=== PATIENT | female | born 1990 | race Caucasian/White ===

== ENCOUNTER → 2023-12-06 13:32 | Outpatient (BNVA) | payer SELFPAY | PROVIDERS: Visit Provider Registered Nurse Neonatal Intensive Care | DX: J02.9 Acute pharyngitis, unspecified (principal) | CPT/HCPCS: 87880 ==

== ENCOUNTER 2024-01-21 15:45 | Emergency (ER) | payer MEDICAID, SELFPAY ==
[2024-01-21 15:48] VITALS: BP 112/76; PULSE 93; RESP 16; TEMP 36.8; O2SAT 100; BMI 22.1
--- NOTE | 2024-01-21 15:54 | W.ED.ANXIETY ---
HPI - Anxiety General: Chief Complaint: Anxiety Stated Complaint: anxiety, sob Time Seen by Provider: 01/21/24 15:53 Source: patient Mode of arrival: ambulatory Limitations: no limitations History of Present Illness: Patient is a 33-year-old female presents to ED today for evaluation of anxiety and a panic attack earlier today. Patient states she does have a longstanding history of anxiety attacks. She states she has chronic depression and anxiety although has not been on medications for these in over 11 years. Patient states she is going through a large amount of stress with the divorce and child custody magana. She is not suicidal or homicidal. MD complaint: anxiety Onset (ago): week(s) Severity: moderate Quality: intermittent History of similar episodes: Yes Provoking factors: emotional stress Relieving factors: nothing Associated symptoms: Reports no associated symptoms Review of Systems Psych: Reports: anxiety, depression and panic attacks; Denies: hopelessness, paranoia, visual hallucinations, auditory hallucinations, suicidal ideation or homicidal ideation [facility] ED Female Reproductive History: Date of last menstrual period: 01/07/24 Physical Exam Const: COMMON NORMALS: no acute distress, average body habitus, patient oriented x3, no limitations, alert and well nourished Resp: COMMON NORMALS: normal respiratory effort and clear to auscultation bilaterally AUSCULTATION: clear to auscultation bilaterally Cardio: COMMON NORMALS: regular rate and regular rhythm RATE: regular rate RHYTHM: regular rhythm Neuro: MANOJ COMA SCALE: document GCS findings Manoj coma scale eye opening: Spontaneous Manoj coma scale verbal response: Orientated Manoj coma scale motor response: Obey commands Manoj coma scale total score: 15 COMMON NORMALS: patient oriented x3, moves all extremities, no focal motor deficits and no sensory deficits noted SENSORIUM/ORIENTATION: Yes alert Psych: COMMON NORMALS: Normal thought process present and speech normal APPEARANCE: Yes grossly normal ATTITUDE: Yes calm ACTIVITY/MOTOR BEHAVIOR: Yes appropriate eye contact SPEECH: Yes normal speech MOOD & AFFECT: Yes euthymic mood THOUGHT PROCESS: Normal thought process present THOUGHT CONTENT: Yes Normal thought content present ATTENTION/CONCENTRATION: Yes attention grossly intact and Yes concentration grossly intact MEMORY/COGNITION: Yes memory grossly intact and Yes cognition grossly intact INSIGHT: Good insight present (Psych) JUDGEMENT: Good judgement present (Psych) Course Vital Signs: Vital signs: Vital Signs Temperature 98.2 F 04/02/24 15:48 Pulse Rate 93 01/21/24 15:48 Respiratory Rate 16 01/21/24 15:48 Blood Pressure 112/76 01/21/24 15:48 Pulse Oximetry 100 01/21/24 15:48 Oxygen Delivery Me thod Room Air 01/21/24 15:48 MDM - Anxiety Medical Decision Making Patient here for evaluation/treatment of anxiety. She is not suicidal or homicidal. Will start her on Vistaril. She is requesting primary care follow-up so case management referral will be placed for this. Discussed how other treatment options including SSRIs might be better indicated for generalized anxiety disorder and she can discuss this during her primary care follow-up. Return precautions given. Differential Diagnosis Likely panic disorder and acute anxiety No radiology studies performed this visit Discharge Plan Discharge Patient Disposition: Home Clinical Impression: Acute anxiety Condition: Stable Prescriptions: New Vistaril 25 mg capsule 50 mg PO TID PRN (Reason: anxiety) Qty: 20 0RF No Action ibuprofen 200 mg Tablet 800 mg PO Q6H PRN (Reason: pain/fever) Probiotic 10 billion cell Capsule 10,000 mmu cells PO DAILY Discharge Orders: Discharge ED (Routine); Ordered 01/21/24 Ordered By: Maggie Davis Patient Instructions: Anxiety (ED) Activity Restrictions/Additional Instructions: As we discussed case management should contact you shortly to help set you up with your follow-up primary care appointment. Coding Level of Care Code ED Newspaper Or Periodical Editor for Sanjeev Hathaway
--- NOTE | 2024-01-22 07:46 | DCPLANNER ---
Message sent to [facility] for PCP
== END 2024-01-21 16:12 | disposition home or self-care (01) ==
PROVIDERS: Emergency Provider Physician Assistant
DX: F41.9 Anxiety disorder, unspecified (principal)
CPT/HCPCS: 99283

== ENCOUNTER → 2024-05-22 09:03 | Outpatient (BNVA) | payer BC, MEDICAID, SELFPAY | PROVIDERS: PCP Nurse Practitioner Family; Visit Provider Nurse Practitioner Family | DX: R53.83 Other fatigue (principal); R53.81 Other malaise | CPT/HCPCS: 80053; 80061; 84443; 85025 ==

== ENCOUNTER 2024-06-27 10:29 | Emergency (ER) | payer BC, MEDICAID, SELFPAY ==
--- NOTE | 2024-06-27 10:33 | XRR_ITS ---
PROCEDURE INFORMATION: Exam: XR Right Ankle Exam date and time: 06/27/2024 10:46 AM Age: 33 years old Clinical indication: Prior surgery; Surgery date: 6+ months; Surgery type: Right ankle plate/screws; Patient HX: PT presents with right ankle pain. Patient states that screws and plates in ankle roughly one year ago. Patient states that over the past several weeks patient has been having ankle pain and has gotten worse over the last several day. Patient states that hurts to put pressure on it. Patent airway, unlabored respirations, and appropriate color. TECHNIQUE: Imaging protocol: Radiologic exam of the right ankle. Views: 3 or more views. COMPARISON: No relevant prior studies available. FINDINGS: Bones/joints: Metallic plate and screws are seen in the distal aspect of the fibula as well as a solitary metallic screw traversing the medial malleolus. The bones show anatomic alignment. Soft tissues: Normal. XR/XR ankle RT min 3V* [id number] IMPRESSION: 1. Bimalleolar fracture status post ORIF. 2. The negative for acute bony abnormalities.
[2024-06-27 10:44] VITALS: BP 125/92; PULSE 85; RESP 18; TEMP 36.8; O2SAT 97; BMI 23.2
--- NOTE | 2024-06-27 10:58 | ED_ITS ---
HPI - Extremity Problem General: Chief complaint: Extremity Problem,Nontraumatic Stated complaint: Right Ankle Pain Time Seen by Provider: 06/27/24 10:48 History of Present Illness: 33-year-old female who presents emergenc y room with right ankle pain. She had a trauma and had to have surgery with a specialist in [place]. She has a lot of hardware she says. She has no new injury. She started developing pain on the lateral side of her ankle and has some bruising down her foot. She is worried about the hardware. Neurovascularly intact. Related Data Home Medications Medication Instructions Recorded Confirmed Lactobacillus acidophilus 10 10,000 mmu cells PO DAILY 01/21/24 05/21/24 billion cell capsule (Probiotic) Previous Rx's Medication Instructions Recorded hydroxyzine pamoate 25 mg capsule 50 mg (2 x 25 mg) PO TID PRN 05/21/24 (Vistaril) anxiety #20 caps dexamethasone 6 mg tablet 6 mg PO DAILY 5 days #5 tabs 06/27/24 diclofenac sodium 50 mg 50 mg PO BID PRN pain #14 tabs 06/27/24 tablet,delayed release tramadol 50 mg tablet 50 mg PO Q8H PRN pain #20 tabs 06/27/24 Allergies Allergy/AdvReac Type Severity Reaction Status Date / Time No Known Allergies Allergy Unverified 05/21/24 13:27 Review of Systems Narrative: Constitutional symptoms: Negative except as documented in HPI. Skin symptoms: Negative except as documented in HPI. Eye symptoms: Negative except as documented in HPI. ENMT symptoms: Negative except as documented in HPI. Respiratory symptoms: Negative except as documented in HPI. Cardiovascular symptoms: Negative except as documented in HPI. Gastrointestinal symptoms: Negative except as documented in HPI. Genitourinary symptoms: Negative except as documented in HPI. Musculoskeletal symptoms: Negative except as documented in HPI. Neurologic symptoms: Negative except as documented in HPI. Psychiatric symptoms: Negative except as documented in HPI. Endocrine symptoms: Negative except as documented in HPI. PFSH ED PFSH: Medical History Major depression Generalized anxiety disorder with panic attacks Family History Sister Cancer cervical Lupus (systemic lupus erythematosus) Thyroid disease Mother Thyroid disease Social History Smoking and tobacco/nicotine status: current every day tobacco/nicotine user (vape pen) e-cigarettes E-Cigarette Details: vaporizer device Second hand smoke exposure: No Alcohol intake: current Alcohol intake frequency: holidays/special occasions only Alcohol type: beer Substance/Drug Use: never Lives independently: Yes Marital status: Current occupational status: employed Do you think of yourself as: Straight/Heterosexual Current gender identity: Female Special rosalino needs: No Agree to transfusion: Yes Physical Exam Narrative: EXAM NARRATIVE: General: Alert, no acute distress. Skin: warm and dry Head: Normocephalic Neck: Trachea midline Eye: Extraocular movements are intact. Ears, nose, mouth and throat: Oral mucosa moist Respiratory: Respirations are non-labored Musculoskeletal: Normal ROM, neurovascularly intact, there are surgical scars, no redness, no warmth, there is some mild bruising distally on the foot. Neurological: Alert and oriented, No focal neurological deficit observed. Psychiatric: Cooperative, appropriate mood & affect. Course Vital Signs: Vital signs: Vital Signs Temperature 98.2 F 06/27/24 10:44 Pulse Rate 85 06/27/24 10:44 Respiratory Rate 18 06/27/24 10:44 Blood Pressure 125/92 06/27/24 10:44 Pulse Oximetry 97 06/27/24 10:44 Oxygen Delivery Me thod Room Air 06/27/24 10:44 MDM - Extremity (Nontraumatic) Medical Decision Making X-ray of the right ankle: No acute bony fractures. There is an old fracture that has hardware that appears intact. No acute abnormalities. This was reviewed and interpreted by myself the emergency room physician. I also reviewed the radiology report. Assessment and plan: Ankle pain Old ankle fracture status post ORIF ? IM Toradol and Decadron in the emergency room - Discharged home - Discussed plan with patient. Answered any questions. - Evaluation and treatment of this problem were appropriate in the emergency setting. Lab Data Radiology Impressions Ankle X-Ray 06/27/24 10:33 IMPRESSION: 1. Bimalleolar fracture status post ORIF. 2. The negative for acute bony abnormalities. All radiology interpretation(s) finalized by discharge Discharge Plan Discharge Patient Disposition: Home Clinical Impression: Ankle pain Qualifiers: Chronicity: unspecified Laterality: right Qualified Code(s): M25.571 - Pain in right ankle and joints of right foot Condition: Stable Prescriptions: New dexamethasone 6 mg tablet 6 mg PO DAILY 5 Days Qty: 5 0RF tramadol 50 mg tablet 50 mg PO Q8H PRN (Reason: pain) Qty: 20 0RF diclofenac sodium 50 mg tablet,delayed release (DR/EC) 50 mg PO BID PRN (Reason: pain) Qty: 14 0RF No Action Vistaril 25 mg capsule 50 mg PO TID PRN (Reason: anxiety) Qty: 20 0RF Probiotic 10 billion cell Capsule 10,000 mmu cells PO DAILY Discharge Orders: Discharge ED (Routine); Ordered 06/27/24 Ordered By: Soledad Razo Referrals: True Vang NP [Primary Care Provider] - 4-7 days Discharge Diet: Usual diet Discharge Activity: Increase activity as tolerated Patient Instructions: Pain Management Activity Restrictions/Additional Instructions: Please call for an appointment with your orthopedic surgeon as soon as possible. Thank you for choosing [facility] for your healthcare needs today. Please realize this is an emergency room and that we are providing you with a medical screening exam and this may not be complete and all inclusive of all the testing and or work up that you may need to determine your ailment or severity of your illness. You have been screened and evaluated and felt safe for discharge. Health conditions do change or evolve sometimes and as such it is important that you follow up with your Primary Doctor to be re checked, 3-5 days is a general good time frame for follow up. You are always welcome to return to the ED for re assessment if your symptoms are worsening or you have new concerns Coding Level of Care Code ED Sql Server Developer for Sanjeev Hathaway
[2024-06-27] MEDS: ketorolac 60 mg/2 mL INJ IM (11:30)
[2024-06-27] MEDS: dexamethasone 10 mg/mL INJ IM (11:30)
[2024-06-27 11:43] VITALS: BP 103/81; PULSE 85; RESP 16; O2SAT 98
== END 2024-06-27 11:41 | disposition home or self-care (01) ==
PROVIDERS: Emergency Provider Emergency Medicine; PCP Nurse Practitioner Family
DX: M25.571 Pain in right ankle and joints of right foot (principal); F17.290 Nicotine dependence, other tobacco product, uncomplicated
CPT/HCPCS: 73610; 96372; 99284; J1100; J1885

== ENCOUNTER → 2024-08-09 15:12 | Outpatient (BNVA) | payer BC, MEDICAID, SELFPAY | PROVIDERS: PCP Nurse Practitioner Family; Visit Provider Nurse Practitioner | DX: J06.9 Acute upper respiratory infection, unspecified | CPT/HCPCS: 87426 ==

== ENCOUNTER → 2024-08-27 11:23 | Outpatient (BNVA) | payer BC, MEDICAID, SELFPAY | PROVIDERS: PCP Nurse Practitioner Family | DX: F41.1 Generalized anxiety disorder; F41.0 Panic disorder [episodic paroxysmal anxiety] | CPT/HCPCS: 80053 ==

== ENCOUNTER 2024-09-28 15:18 | Outpatient (CLI) | payer BC, MEDICAID, SELFPAY ==
--- NOTE | 2024-09-28 15:24 | XR_ITS ---
WS: [id number] Exam: XR KUB [id number] Date/Time of Exam: 09/28/2024 3:24 PM Reason For Exam: abdominal pain No bowel obstruction or pneumoperitoneum. No sign of organ enlargement. Regional bony structures appe ar normal. XR/XR KUB [id number] IMPRESSION: 1. Negative KUB.
[2024-09-28 16:37] LABS: Alanine Aminotransferase 7 U/L (0-33); Albumin Level 4.7 g/dL (3.5-5.2); Alkaline Phosphatase 41 U/L (35-105); Anion Gap 12.5 (5-19); Aspartate Amino Transferase 11 U/L (0-32); Blood Urea Nitrogen 7 mg/dL (6-20); Calcium 9.3 mg/dL (8.5-10.5); Carbon Dioxide 27 mmol/L (22-29); Chloride 103 mmol/L (98-107); Globulin 2.7 g/dL (1.3-4.6); Glomerular Filtration Rate 115.9 mL/min (90-130); Glucose 89 mg/dL (65-115); Osmolality Calculated 285 mOsm/kg (285-295); Potassium 3.5 mmol/L (3.5-5.1); Sodium 139 mmol/L (136-145); Total Bilirubin 0.4 mg/dL (0.15-1.2); Total Protein 7.4 g/dL (6.6-8.7)
== END 2024-09-28 15:19 | disposition home or self-care (01) ==
LOC: LAB 15:20
DX: R10.9 Unspecified abdominal pain (principal)
CPT/HCPCS: 36415; 74018; 80053

== ENCOUNTER → 2024-10-01 15:29 | Outpatient (BNVA) | payer BC, MEDICAID, SELFPAY | DX: Z12.4 Encounter for screening for malignant neoplasm of cervix (principal) | CPT/HCPCS: 87624 ==

== ENCOUNTER 2024-10-19 07:06 | Emergency (ER) | payer BC, MEDICAID, SELFPAY ==
--- NOTE | 2024-10-19 07:15 | ECG_ITS ---
[facility] Test Date: 2024-10-19 Pat Name: Flavia Wilson Department: Room: Gender: Female Registered Clinical Dietitian: : 1990 Requested By: Sol Strong Order Number: [id number] Linda MD: Vinh Caceres M.D. Measurements Intervals [place] Rate: 81 P: 87 MI: 173 QRS: 87 QRSD: 79 T: 67 QT: 355 QTc: 413 Interpretive Statements SINUS RHYTHM SEPTAL MYOCARDIAL INFARCTION , PROBABLY OLD [40+ ms Q WAVE IN V1/V2] No previous ECG available for comparison Electronically Signed On 10-19-2024 16:34:55 ECONOMICS FACULTY MEMBER by Vinh Caceres M.D. [email or web address]
--- NOTE | 2024-10-19 07:15 | XR_ITS ---
WS: [id number] PORTABLE CHEST HISTORY: cp COMPARISON: None available. Lungs are clear and well expanded. No pleural effusion or pneumothorax. Cardiac size: Normal. Mediastinum/Aorta: Normal mediastinum. No osseous abnormality seen. XR/XR chest 1V portable [id number] IMPRESSION: Unremarkable portable chest.
[2024-10-19 07:16] VITALS: BP 116/68; PULSE 81; RESP 17; TEMP 36.5; O2SAT 100; BMI 23.3
--- NOTE | 2024-10-19 07:20 | ED_ITS ---
HPI - Chest Pain General: Chief Complaint: Chest Pain Stated Complaint: chest pain Time Seen by Provider: 10/19/24 07:12 Source: patient Mode of arrival: ambulatory Limitations: no limitations History of Present Illness: 33-year-old female states she woke up th is morning as sharp chest pain states been a sharp pain left side of her chest she has had a slight cough states pain is much worse with palpation and with a cough she denies any shortness of breath denies any fever denies any vomiting or diarrhea denies any history of heart disease Associated symptoms: Deny abdominal pain, dyspnea, fever(s), nausea or vomiting Related Data Previous Rx's Medication Instructions Recorded fluticasone propionate 50 2 spray intranasal DAILY #16 grams 08/07/24 mcg/actuation nasal spray,suspension (Flonase Allergy Relief) naproxen 500 mg tablet (Naprosyn) 500 mg PO BID PRN pain #20 tabs 10/19/24 Allergies Allergy/AdvReac Type Severity Reaction Status Date / Time No Known Allergies Allergy Verified 10/01/24 14:31 Review of Systems Const: Denies: fever(s), chills, body aches or change in appetite Eyes: Denies: eye discomfort ENMT: Denies: throat pain or dental pain Card: Reports: chest pain Resp: Denies: dyspnea GI: Denies: abdominal pain, nausea, vomiting or diarrhea Musc: Denies: neck pain or back pain Skin/Breast: Denies: rash Neuro: Denies: headache(s) PFSH ED PFSH: Medical History Abdominal pain Cervical cancer screening Encounter to establish care Chronic headaches Major depression Generalized anxiety disorder with panic attacks Family History Sister Cancer cervical Lupus (systemic lupus erythematosus) Thyroid disease Mother Thyroid disease Social History Smoking and tobacco/nicotine status: current every day tobacco/nicotine user e- cigarettes E-Cigarette Details: vaporizer device Second hand smoke exposure: No Alcohol intake: current Alcohol intake frequency: holidays/special occasions only Alcohol type: beer Substance/Drug Use: never Lives independently: Yes Marital status: Current occupational status: employed Do you think of yourself as: Straight/Heterosexual Current gender identity: Female Special rosalino needs: No Agree to transfusion: Yes Female Reproductive History: Date of last menstrual period: 10/10/24 Physical Exam Const: COMMON NORMALS: no acute distress, patient oriented x3 and healthy appearing HENMT: COMMON NORMALS: normocephalic and atraumatic HEAD & SCALP: normocephalic and atraumatic Eye: COMMON NORMALS: conjunctivae normal CONJUNCTIVA: Yes conjunctivae normal Neck/C-Spine: COMMON NORMALS: full ROM and supple Chest: COMMONS NORMALS: normal inspection of the chest OTHER: Chest wall tenderness to left chest reproduces her pain Resp: COMMON NORMALS: normal respiratory effort, No retractions, No use of accessory muscles and clear to auscultation bilaterally AUSCULTATION: clear to auscultation bilaterally Cardio: COMMON NORMALS: regular rate, regular rhythm and No murmurs present (C ardio) RATE: regular rate RHYTHM: regular rhythm Extremity: COMMON NORMALS: normal to inspection and full ROM Neuro: COMMON NORMALS: patient oriented x3, moves all extremities and no focal motor deficits Psych: COMMON NORMALS: mental status grossly normal, Normal thought process present and cooperative THOUGHT PROCESS: Normal thought process present Skin: COMMON NORMALS: no rashes or lesions noted and no wounds GENERAL SKIN EXAM: no rashes or lesions noted Course Vital Signs: Vital signs: Vital Signs Temperature 97.7 F 10/19/24 07:16 Pulse Rate 81 10/19/24 07:16 Respiratory Rate 17 10/19/24 07:16 Blood Pressure 116/68 10/19/24 07:16 Pulse Oximetry 100 10/19/24 07:16 Oxygen Delivery Me thod Room Air 10/19/24 07:16 MDM - Chest Pain Medical Decision Making Patient presents with chest wall pain is likely muscular she is point tender on exam EKG x-ray are normal no signs of PE no signs of ACS she stable for discharge follow-up with PCP return if worsening. Medical Records I reviewed the patient's medical records. Lab Data I reviewed the patient's lab results. Radiology Impressions Chest X-Ray 10/19/24 07:15 IMPRESSION: Unremarkable portable chest. XR interpretation done by ED provider, pending radiology final review ED provider radiology interpretation(s): cxr no acute abnormality Discharge Plan Discharge Patient Disposition: Home Clinical Impression: Chest wall pain Condition: Stable Prescriptions: New naproxen [Naprosyn] 500 mg tablet 500 mg PO BID PRN (Reason: pain) Qty: 20 0RF No Action fluticasone propionate [Flonase Allergy Relief] 50 mcg/actuation spray,suspension 2 spray intranasal DAILY Qty: 16 0RF Rx Instructions: administer into each nostril Discharge Orders: Discharge ED (Routine); Ordered 10/19/24 Ordered By: Sol Strong Referrals: Deirdre Chew NP [Primary Care Provider] - Discharge Diet: Advance as tolerated Discharge Activity: Resume usual activity Patient Instructions: Chest Wall Pain (ED) Coding Level of Care Code ED Patient Financial Rep for Sanjeev Hathaway
[2024-10-19 07:52] VITALS: BP 116/68; PULSE 68; O2SAT 98
== END 2024-10-19 07:57 | disposition home or self-care (01) ==
PROVIDERS: Emergency Provider Emergency Medicine
DX: R07.89 Other chest pain (principal); F17.290 Nicotine dependence, other tobacco product, uncomplicated
CPT/HCPCS: 71045; 93005; 99284

== ENCOUNTER 2025-03-05 10:19 | Observation (INO) | payer BC, MEDICAID, SELFPAY ==
[2025-03-05] VITALS (16 sets, daily range): BP systolic 103–117; BP diastolic 64–82; PULSE 65–105; RESP 14–21; TEMP 36.1–36.6; O2SAT 95–100; BMI 21.2; BMI 21.0
[2025-03-05 11:04] LABS: Basophils % 0.2 %; Eosinophils % 0.1 %; Lymphocytes # 0.8 10^3/uL (0.8-4.8); Lymphocytes % 8.4 %; Mean Corpuscular HGB Conc 34.3 g/dL (30-55); Mean Corpuscular Hemoglobin 32.4 pg (27-33); Mean Corpuscular Volume 94.6 fl (85-98); Mean Platelet Volume 9.7 fL (7.4-10.4); Monocytes # 0.5 10^3/uL (0.2-0.9); Monocytes % 5.4 %; Neutrophils % 85.6 %; Nucleated Red Blood Cells % 0 %; Platelet Count 265 10^3/cmm (157-399); Red Blood Count 4.23 10^6/uL (3.85-5.65); Red Cell Distribution Width 12.3 % (12.1-15.1); White Blood Count 9.81 10^3/uL (3.29-11.43)
--- NOTE | 2025-03-05 11:16 | ED_ITS ---
HPI - Abdominal Pain 2 General: Chief Complaint: Abdominal Pain Stated Complaint: abdominal pain Time Seen by Provider: 03/05/25 10:27 Source: patient Mode of arrival: ambulatory Limitations: no limitations History of Present Illness: Patient is a 34-year-old female presents to ED today with complaint of abdominal pain. Patient states pain started yesterday around 4:30 PM and has been constant since. She has had some dry heaving but no active episodes of emesis. She has not noted any changes in her bowel movements. No fevers. Reports some intermittent burning with urination. Reports no chance of . States she just finished with her menstrual cycle. MD elicited complaint: abdominal pain Pertinent past history: none Onset (ago): day(s) (yesterday evening) Pain Consistency: constant Location: Diffuse (mainly lower abdomen) Severity: severe Quality: sharp Radiation: none Migration to: no migration Exacerbating factors: movement Relieving factors: nothing Associated Symptoms: Reports no associated symptoms, dysuria (intermittent) and nausea; Denies change in bowel habits, chills, diarrhea, fever(s) and vomiting Related Data Home Medications ?Medication ?Instructions ?Recorded ?Confirmed No Known Home Medications 03/05/2502/18 Allergies Allergy/AdvReac Type Severity Reaction Status Date / Time No Known Allergies Allergy Verified 10/01/24 14:31 Review of Systems 2 Const: Denies: fever(s), chills, body aches, fatigue or malaise Card: Denies: chest pain Resp: Denies: dyspnea GI: Reports: abdominal pain and nausea; Denies: vomiting, diarrhea or change in bowel habits : Reports: dysuria (intermittent); Denies: flank pain, difficulty voiding, urinary frequency, urinary urgency or urinary hesitancy Musc: Denies: neck pain, back pain, extremity pain, extremity swelling or joint swelling Skin/Breast: Denies: rash Neuro: Denies: headache(s), numbness in extremities, weakness in extremities, sensory changes or dizziness PFSH ED 2 PFSH: Medical History Abdominal pain Cervical cancer screening Encounter to establish care Chronic headaches Major depression Generalized anxiety disorder with panic attacks Family History Sister Cancer cervical Lupus (systemic lupus erythematosus) Thyroid disease Mother Thyroid disease Social History Smoking and tobacco/nicotine status: current every day tobacco/nicotine user e- cigarettes E-Cigarette Details: vaporizer device Second hand smoke exposure: No Alcohol intake: current Alcohol intake frequency: holidays/special occasions only Alcohol type: beer Substance/Drug Use: never Lives independently: Yes Marital status: Current occupational status: employed Do you think of yourself as: Straight/Heterosexual Current gender identity: Female Special rosalino needs: No Agree to transfusion: Yes Physical Exam 2 Const: COMMON NORMALS: average body habitus, patient oriented x3, no limitations, healthy appearing, alert and well nourished GENERAL APPEARANCE: cooperative and in distress (appears uncomfortable due to pain; holding abdomen) ORIENTATION/CONSCIOUSNESS: Yes awake, Yes oriented to person, Yes oriented to place and Yes oriented to time Eye: COMMON NORMALS: no scleral icterus Neck/C-Spine: COMMON NORMALS: full ROM, no lymphadenopathy and no meningeal signs Resp: COMMON NORMALS: normal respiratory effort and clear to auscultation bilaterally AUSCULTATION: clear to auscultation bilaterally Cardio: COMMON NORMALS: regular rate and regular rhythm RATE: regular rate RHYTHM: regular rhythm GI: COMMON NORMALS: Normal to inspection, nondistended, normoactive bowel sounds present, Soft to palpation, No hepatosplenomegaly present and no masses INSPECTION: Yes normal to inspection AUSCULTATION: Yes normoactive bowel sounds PALPATION: Yes Soft to palpation, Yes Tenderness to palpation present (GI) (diffusely but max tenderness to RLQ), Yes Guarding due to palpation present (GI), No Rigid due to palpation, Yes No hepatosplenomegaly present and Yes Other GI palpation findings present (+ specialized testing for appy) : COMMON NORMALS: Yes no CVA tenderness BLADDER/KIDNEY EXAM: Yes no CVA tenderness Back/Pelvis: COMMON NORMALS: no CVA tenderness Extremity: GENERAL: Yes normal exam except as noted Neuro: COMMON NORMALS: patient oriented x3 SENSORIUM/ORIENTATION: Yes alert, Yes oriented to person, Yes oriented to place and Yes oriented to time MENINGEAL SIGNS: Yes no meningeal signs Skin: COMMON NORMALS: no rashes or lesions noted GENERAL SKIN EXAM: no rashes or lesions noted Course 2 Consultations: Consultation #1: Dr. 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 She does have generalized abdominal pain worse to the right lower quadrant. Her vital signs are stable. Blood work showing normal white count. She does have a mildly elevated CRP at 23. UA does have trace leuks and 25-50 WBCs but also has 6-[address] scan of her abdomen showing mildly dilated appendix with wall enhancement and minimal periappendiceal edema with findings suspicious for early acute appendicitis. She has been consulted on by Dr. Villalta. At this time plan will be for admission to obs with serial examinations to rule out appendicitis. She had requested obtaining transvaginal ultrasound which was completed. Maintenance fluids will be ordered. Patient will be made NPO per surgeon. Did not want antibiotics at this time. Medical Records I reviewed the patient's medical records. Lab Data I reviewed the patient's lab results. 03/05/25 10:59 03/05/25 10:59 Labs/Radiology: Radiology Impressions Abdomen/Pelvis CT 03/05/25 11:22 IMPRESSION: 1. Appendix is very minimally abnormal. Mildly dilated appendix up to 8.5 mm with wall enhancement and minimal periappendiceal edema. Findings are highly suspicious for early acute appendicitis. 2. Small amount of free fluid in the cul-de-sac, greater on the RIGHT. May be reactive process from possible appendicitis or ruptured ovarian cyst. 3. Enlarged uterus with probable fibroids. 4. Pelvic venous congestion syndrome. Notified LELO Crain at 03/05/2025 12:15 PM. Transvaginal US 03/05/25 12:50 IMPRESSION: 1. Normal ovaries with normal vascularity. 2. Small ovarian follicles. 3. Mild uterine enlargement. 4. Pelvic venous congestion. Laboratory Results WBC 9.81 10^3/uL (3.29-11.43) 03/05/25 10:59 RBC 4.23 10^6/uL (3.85-5.65) 03/05/25 10:59 Hgb 13.70 g/dL (11.27-16.99) 03/05/25 10:59 Hct 40.0 % (36-47) 03/05/25 10:59 MCV 94.6 fl (85-98) 03/05/25 10:59 MCH 32.4 pg (27-33) 03/05/25 10:59 MCHC 34.3 g/dL (30-55) 03/05/25 10:59 RDW 12.3 % (12.1-15.1) 03/05/25 10:59 Plt Count 265 10^3/cmm (157-399) 03/05/25 10:59 MPV 9.7 fL (7.4-10.4) 03/05/25 10:59 Neut % (Auto) 85.6 % 03/05/25 10:59 Lymph % (Auto) 8.4 % 03/05/25 10:59 [place] % (Auto) 5.4 % 03/05/25 10:59 Eos % (Auto) 0.1 % 03/05/25 10:59 Baso % (Auto) 0.2 % 03/05/25 10:59 Neut # (Auto) 8.40 10^3/uL (1.8-7.7) H 03/05/25 10:59 Lymph # (Auto) 0.8 10^3/uL (0.8-4.8) 03/05/25 10:59 [place] # (Auto) 0.5 10^3/uL (0.2-0.9) 03/05/25 10:59 Eos # (Auto) 0.0 10^3/uL (0.0-0.8) 03/05/25 10:59 Baso # (Auto) 0.0 10^3/uL (0.0-0.1) 03/05/25 10:59 Nucleated RBC % (auto) 0 % 03/05/25 10:59 Nucleated RBCs # 0.0 /100WBC 03/05/25 10:59 Sodium 140 mmol/L (136-145) 03/05/25 10:59 Potassium 3.7 mmol/L (3.5-5.1) 03/05/25 10:59 Chloride 102 mmol/L (98-107) 03/05/25 10:59 Carbon Dioxide 21 mmol/L (22-29) L 03/05/25 10:59 Anion Gap 20.7 (5-19) H 03/05/25 10:59 BUN 5 mg/dL (6-20) L 03/05/25 10:59 Creatinine 0.5 mg/dL (0.5-0.9) 03/05/25 10:59 GFR Calculation 142.1 mL/min (90-130) H 03/05/25 10:59 Glucose 94 mg/dL (65-115) 03/05/25 10:59 Calculated Osmolality 287 mOsm/kg (285-295) 03/05/25 10:59 Calcium 9.5 mg/dL (8.5-10.5) 03/05/25 10:59 Total Bilirubin 0.9 mg/dL (0.15-1.2) 03/05/25 10:59 AST 9 U/L (0-32) 03/05/25 10:59 ALT < 5 U/L (0-33) 03/05/25 10:59 Alkaline Phosphatase 46 U/L (35-105) 03/05/25 10:59 C-Reactive Protein 23.0 mg/L (0.0-4.9) H 03/05/25 10:59 Total Protein 7.6 g/dL (6.6-8.7) 03/05/25 10:59 Albumin 4.6 g/dL (3.5-5.2) 03/05/25 10:59 Globulin 3.0 g/dL (1.3-4.6) 03/05/25 10:59 Lipase 11 U/L (13-60) L 03/05/25 10:59 HCG, Qual Negative (Negative) 03/05/25 10:59 Urine Color Yellow (Yellow) 03/05/25 11:40 Urine Appearance Cloudy (CLEAR) A 03/05/25 11:40 Urine pH 8.5 (5-7) A 03/05/25 11:40 Ur Specific [place] 1.011 (1.005-1.030) 03/05/25 11:40 Urine Protein Negative (Negative) 03/05/25 11:40 Urine Glucose (UA) Negative (Normal) 03/05/25 11:40 Urine Ketones 2+ (Negative) H 03/05/25 11:40 Urine Blood Negative (Negative) 03/05/25 11:40 Urine Nitrate Negative (Negative) 03/05/25 11:40 Urine Bilirubin Negative (Negative) 03/05/25 11:40 Urine Urobilinogen 0.2 mg/dL (Negative) 03/05/25 11:40 Ur Leukocyte Esterase Trace (Negative) A 03/05/25 11:40 Urine RBC 0-2 /hpf (0-2) 03/05/25 11:40 Urine WBC 21-50 /hpf (0-5) H 03/05/25 11:40 Ur Squamous Epith Cells 6-10 /hpf (0-5) 03/05/25 11:40 Amorphous Sediment Not Reportable 03/05/25 11:40 Urine Bacteria 3+ /hpf (NONE) H 03/05/25 11:40 Hyaline Casts 0.40 /lpf 03/05/25 11:40 All radiology interpretation(s) finalized by discharge Discharge Plan Discharge Patient Disposition: Placed in Observation Clinical Impression: Abdominal pain, RLQ Coding Level of Care Code ED Electronics Test Engineer for Sanjeev Hathaway
[2025-03-05 11:17] LABS: HCG, Serum Qual Negative (Negative)
[2025-03-05 11:22] LABS: Alanine Aminotransferase < 5 U/L (0-33); Albumin Level 4.6 g/dL (3.5-5.2); Alkaline Phosphatase 46 U/L (35-105); Anion Gap 20.7 (5-19); Aspartate Amino Transferase 9 U/L (0-32); Blood Urea Nitrogen 5 mg/dL (6-20); Calcium 9.5 mg/dL (8.5-10.5); Carbon Dioxide 21 mmol/L (22-29); Chloride 102 mmol/L (98-107); Creatinine Clr Calc Pharmacy 133.9764; Glomerular Filtration Rate 142.1 mL/min (90-130); Glucose 94 mg/dL (65-115); Lipase 11 U/L (13-60); Osmolality Calculated 287 mOsm/kg (285-295); Potassium 3.7 mmol/L (3.5-5.1); Sodium 140 mmol/L (136-145); Total Bilirubin 0.9 mg/dL (0.15-1.2); Total Protein 7.6 g/dL (6.6-8.7)
--- NOTE | 2025-03-05 11:22 | CT_ITS ---
WS: [id number] CT ABDOMEN AND PELVIS WITH CONTRAST HISTORY: abdominal pain TECHNIQUE: Imaging performed of the abdomen and pelvis with IV contrast. Single phase imaging of the abdomen. Coronal and sagittal reformats are submitted. All CT scans at [facility] use at least one of these dose optimization techniques: automated exposure control; mA and/or kV adjustment per patient size (includes targeted exams where dose is matched to clinical indication); or iterative reconstruction. IV CONTRAST: Omnipaque 350; 100 mL IV. Oral contrast: No DLP: 340.03 mGy.cm COMPARISON: None available. Lower thorax: Lung bases are clear. Heart is normal size. No hiatal hernia. Liver/biliary system: Normal size with no intrahepatic dilatation. Gallbladder: Normal. No gallstones or wall thickening. No pericholecystic fluid. Pancreas: Normal size pancreas and pancreatic duct. No adjacent inflammation. Spleen: Normal size spleen. No mass or infarct. Adrenal glands: Normal. Right kidney: Normal. Left kidney: Normal. Aorta: Normal. Lymphadenopathy: None. Free fluid: There is free fluid in the cul-de-sac. Slightly greater on the RIGHT. GI tract: Appendix is dilated to 8.5 mm with wall thickening and enhancement. There is mild periappendiceal edema. No GI tract obstruction. Mild constipation. Abdominal wall: Unremarkable abdominal wall. No hernia. Pelvis: Uterus is enlarged and heterogeneous. Uterus measures 11 cm in length. Variable attenuation and enhancement within the myometrium favor fibroids. There is mild fluid distention of the endometrial cavity which may be related to the patient's menstrual cycle. Bilateral ovarian follicles. Additional dilated periuterine veins. Bones: Unremarkable. CT/CT abdomen pelvis w con* [id number] IMPRESSION: 1. Appendix is very minimally abnormal. Mildly dilated appendix up to 8.5 mm w ith wall enhancement and minimal periappendiceal edema. Findings are highly demetra picious for early acute appendicitis. 2. Small amount of free fluid in the cul-de-sac, greater on the RIGHT. May be reactive process from possible appendicitis or ruptured ovarian cyst. 3. Enlarged uterus with probable fibroids. 4. Pelvic venous congestion syndrome. Notified LELO Crain at 03/05/2025 12:15 PM.
[2025-03-05] MEDS: iohexol 350 mg/mL 500 mL Btl (per mL) IV (11:47)
[2025-03-05 11:49] LABS: Bilirubin Urine Negative (Negative); Blood Urine Negative (Negative); Glucose Urine UA Negative (Normal); Ketones Urine 2+ (Negative); Leukocyte Esterase Urine Trace (Negative); Nitrate Urine Negative (Negative); Protein Urine Negative (Negative); Specific Gravity, Urine 1.011 (1.005-1.030); Urine Appearance Cloudy (CLEAR); Urine Color Yellow (Yellow); Urobilinogen Urine 0.2 mg/dL (Negative); pH Urine 8.5 (5-7)
[2025-03-05 11:54] LABS: Add Urine Microscopic? YES; Bacteria Urine 3+ /hpf; RBC Urine 0-2 /hpf (0-2); WBC Urine 21-50 /hpf (0-5)
[2025-03-05] MEDS: ondansetron 2 mg/ML SDV 2 mL 4 MG IVP ×2 (12:16→22:15)
[2025-03-05] MEDS: morphine 4 mg/mL SDV 1 mL IM (12:16)
--- NOTE | 2025-03-05 12:50 | US_ITS ---
WS: [id number] US transvaginal [id number] HISTORY: pelvic/lower abdominal pain COMPARISON: CT 03/05/2025 Uterus: 9.8 cm x 7.5 cm x 4.7 cm. Mildly enlarged anteverted uterus. Periureteral veins are abundant. There is mild heterogeneity within the myometrium but no fibroid. Endometrium: 0.9 cm. Normal endometrium. There are few small calcifications at the junctional zone which may be due to prior instrumentation. No mass. Right ovary: 2.5 cm x 1.9 cm x 1.4 cm. Normal size and vascularity, no cystic or solid masses. Small follicles. Left ovary: 3.0 cm x 2.7 cm x 2.1 cm. Normal size and vascularity, no cystic or solid masses. Small follicles. No free fluid identified by ultrasound. Fluid was identified on the CT in the RIGHT adnexa. US/US transvaginal [id number] IMPRESSION: 1. Normal ovaries with normal vascularity. 2. Small ovarian follicles. 3. Mild uterine enlargement. 4. Pelvic venous congestion.
[2025-03-05] MEDS: bisacodyl 5 mg Tablet 20 MG PO (15:13)
[2025-03-05] MEDS: polyethylene glycol 3350 Pkt 17 gm 34 GM PO (15:13)
[2025-03-05] MEDS: sodium chloride 0.9% 1,000 ML 75 ML IV (15:13)
--- NOTE | 2025-03-05 15:46 | PM.HP ---
Providers/Chief Complaint Admitting Physician: Jihan Villalta DO/general rose Primary Care Provider: Deirdre Chew NP Chief Complaint: abdominal pain History of Present Illness Flavia Wilson is a 34 year old female with Alpha-gal syndrome ( she can't eat red meat ) and history of Merino's Palsy who started to have belly pain around 4:30 pm yesterday after she had eaten pizza and a bread stick. She was up all night with abdominal pain and dry heaves. She describes the pain as lower abdominal that radiates to the back and she points to the suprapubic region, RLQ, LLQ, and right and left flanks. She has nausea and had one small episode of emesis. She also has loss of appetite. Again, she describes it as all over abdominal pain that moves around. Her last bowel movement was yesterday and it was small. She is constipated at baseline and typically has just one bowel movement per week. She also has intermittent abdominal pain that comes and goes. Her last menstrual period was 4-5 days ago. She also stated that she has been swollen intermittently in the right lower quadrant for the last 2 weeks. She has chronic back pain and headaches all the time. She occasionally has pain after eating fatty foods. Sometimes her urine smells funny. She denied having pain with intercourse. She denies fever or chills. Review of Systems General: Reports: 10 or more systems reviewed and unremarkable except in HPI and below GI: Reports: abdominal pain, nausea, constipation and change in bowel habits; Denies: hematochezia Musc: Reports: back pain Medications/Allergies Home Medications ?Medication ?Instructions ?Recorded ?Confirmed ?Last Taken ?Type No Known Home Medications 03/05/25 03/05/25 Unknown History Allergies Allergy/AdvReac Type Severity Reaction Status Date / Time No Known Allergies Allergy Verified 10/01/24 14:31 PFSH Acute PFSH: Medical History (Updated 03/05/25 @ 16:39 by Jihan Villalta MD) 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 Frequent headaches Abdominal pain Cervical cancer screening Encounter to establish care Chronic headaches Major depression Generalized anxiety disorder with panic attacks Surgical History (Updated 03/05/25 @ 16:39 by Jihan Villalta MD) S/P thyroid biopsy History of ankle surgery Family History Sister Cancer cervical Lupus (systemic lupus erythematosus) Thyroid disease Mother Thyroid disease Social History Smoking and tobacco/nicotine status: current every day tobacco/nicotine user e-cigarettes E-Cigarette Details: vaporizer device Second hand smoke exposure: No Alcohol intake: current Alcohol intake frequency: holidays/special occasions only Alcohol type: beer Substance/Drug Use: never Lives independently: Yes Marital status: Current occupational status: employed Do you think of yourself as: Straight/Heterosexual Current gender identity: Female Special rosalino needs: No Agree to transfusion: Yes Vitals/I&O/Wt Last Vital Signs Temp 97.7 F 03/05/25 10:46 Pulse 65 03/05/25 13:56 Resp 18 03/05/25 13:56 BP 115/78 03/05/25 13:56 Pulse Ox 99 03/05/25 13:56 O2 Del Method Room Air 03/05/25 10:46 03/05/25 03/05/25 03/05/25 06:59 14:59 22:59 Intake Total 0 / 0 Balance 0 / 0 Weight last 48 hrs Weight 119 lb Weight 120 lb Physical Exam Const: COMMON NORMALS: no acute distress, average body habitus and patient oriented x3 EXAM LIMITATIONS: no altered mental status HENMT: COMMON NORMALS: normocephalic and atraumatic Chest: COMMONS NORMALS: normal inspection of the chest Resp: COMMON NORMALS: normal respiratory effort and No use of accessory muscles GI: COMMON NORMALS: Normal to inspection, nondistended, normoactive bowel sounds present OTHER: Tender to palpation in the RLQ, LLQ, suprapubic region, and the RUQ. Equivocal rbound tenderness. Neuro: COMMON NORMALS: patient oriented x3, CN's II-XII intact bilaterally, moves all extremities and no focal motor deficits Psych: COMMON NORMALS: mental status grossly normal, cooperative and normal affect Data 03/05/25 10:59 03/05/25 10:59 CT Abd/Pel: I personally reviewed and interpreted this imaging study as follows: My impression: There is some mild periappendiceal fluid and mildly dilated appendix. Radiologist's impression: 1. Appendix is very minimally abnormal. Mildly dilated appendix up to 8.5 mm with wall enhancement and minimal periappendiceal edema. Findings are highly suspicious for early acute appendicitis. 2. Small amount of free fluid in the cul-de-sac, greater on the RIGHT. May be reactive process from possible appendicitis or ruptured ovarian cyst. 3. Enlarged uterus with probable fibroids. 4. Pelvic venous congestion syndrome. A&P Assessment and plan (1) Abdominal pain: -- This patient's physical exam and reported symptoms are equivocal for acute appendicitis, in tandem with chronic intermittent abdominal pain and the CT findings of highly suspicious for early acute appendicitis. Also in the setting of normal WBC and an Alvarodo score of 5 or 6 = possible acute appendicitis. -- I recommended a pelvic ultrasound due to CT findings, possible ovarain cyst -pelvic ultrasound was unremarkable other than pelvic venous congestion: 1. Normal ovaries with normal vascularity. 2. Small ovarian follicles. 3. Mild uterine enlargement. 4. Pelvic venous congestion. -- Shared decision making was employed and I offered the patient laparoscopic appendectomy now with the risk of having a 'negative appendectomy' versus rule out appendicitis with NPO and no antibiotics, recheck exam and repeat CBC in a few hours. -- Also, patient given two doses of Miralax in the setting of her chronic constipation. --The surgery and what it would entail were discussed with the patient in detail, including the risks, benefits, and potential alternative treatment options. Risks included, but were not limited to infection, bleeding, injury to IntraOp eli organs/bowel, hernia formation, postoperative abscess, need for placement of a surgical drain, need for further surgery or interventional radiology procedures, negative appendectomy, and heart or lung complications. (2) Generalized anxiety disorder with panic attacks: (3) Major depression: (4) Chronic headaches: PDMP PDMP Reviewed: Not Reviewed Attestations Medical Necessity Statement*: Place in observation. Coding Level of Care Code Acute Code for [facility] Fwd Diagnoses Abdominal pain R10.9 Generalized anxiety disorder with panic attacks F41.1; F41.0 Moderate episode of recurrent major depressive disorder F33.1 Major depression recurrence: recurrent Active/Remission status: currently active Major depression episode severity: moderate Chronic headaches R51.9; G89.29
[2025-03-05 17:33] LABS: Basophils % 0.1 %; Eosinophils % 0.1 %; Hematocrit 39.9 % (36-47); Lymphocytes # 0.7 10^3/uL (0.8-4.8); Lymphocytes % 7.2 %; Mean Corpuscular HGB Conc 33.1 g/dL (30-55); Mean Corpuscular Hemoglobin 31.8 pg (27-33); Mean Corpuscular Volume 96.1 fl (85-98); Mean Platelet Volume 9.8 fL (7.4-10.4); Monocytes # 0.7 10^3/uL (0.2-0.9); Monocytes % 7.4 %; Neutrophils # 8.52 10^3/uL (1.8-7.7); Nucleated Red Blood Cells % 0 %; Platelet Count 219 10^3/cmm (157-399); Red Blood Count 4.15 10^6/uL (3.85-5.65); Red Cell Distribution Width 12.3 % (12.1-15.1); White Blood Count 10.02 10^3/uL (3.29-11.43)
--- NOTE | 2025-03-05 17:54 | ANES.PREANE2 ---
Pre-Anesthetic Assessment Height/Weight: Height 5 ft 3 in Weight 119 lb Temp Pulse Resp BP Pulse Ox O2 Del Method 97.7 F 89 18 107/68 95 Room Air 03/05/25 10:46 03/05/25 16:00 03/05/25 16:00 03/05/25 16:00 03/05/25 16:00 03/05/25 10:46 Preop Diagnosis: Acute appendicitis Was Beta Lizandro taken within 24 hours: N/A Was Clonidine taken within 24 hours: N/A Social Alcohol and Tobacco Drinks daily Exam alert, oriented x 3, clear to auscultation bilaterally and regular rate & rhythm Airway Submandibular: within normal limits Cervical ROM: within normal limits Mallampati: Class II Dentition: full Comments: Comments: Tongue ring in place which patient removed during evaluation. Anesthetic Plan ASA status: 3E Anesthesia: General Other: Patient presents to the ER today with acute abdominal pain. Found to have acute appendicitis No prior issues with anesthesia NPO since sometime this morning. Patient does not remember the time. Drink a MiraLAX cocktail. No solid food since yesterday Patient does admit to being nauseous currently. Will give Pepcid and Zofran Denies any cardiac issues Patient admits to drinking daily, hard alcohol. States she does not ever drink to the point she gets drunk Vapes nicotine Labs reviewed, all labs WNL. Patient is afebrile currently METs greater than 4 Plan for GETA with RSI Medications/Allergies Home Medications ?Medication ?Instructions ?Recorded ?Confirmed ?Last Taken ?Type No Known Home Medications 03/05/25 03/05/25 Unknown History Allergies Allergy/AdvReac Type Severity Reaction Status Date / Time Alpha-Gal Allergy Unknown Verified 03/05/25 18:19 (Ndrltbhja-Cqjea-1,3-Gala Current Medications Generic Name Dose Route Start Last Admin Trade Name Freq PRN Reason Stop Dose Admin Sodium Chloride 1,000 mls @ 75 mls/hr 03/05/25 15:00 03/05/25 15:13 Sodium Chloride 0.9% IV 75 mls/hr .[id number] JUAN RAMON Administration Sodium Chloride 1,000 mls @ 100 mls/hr 03/05/25 15:15 03/05/25 16:06 Sodium Chloride 0.9% IV Not Given .Q10H JUAN RAMON PFSH Anesthesia Medical History (Updated 03/05/25 @ 16:39 by Jihan Villalta MD) 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 Frequent headaches Abdominal pain Cervical cancer screening Encounter to establish care Chronic headaches Major depression Generalized anxiety disorder with panic attacks Surgical History (Updated 03/05/25 @ 16:39 by Jihan Villalta MD) S/P thyroid biopsy History of ankle surgery Family History Sister Cancer cervical Lupus (systemic lupus erythematosus) Thyroid disease Mother Thyroid disease Social History Smoking and tobacco/nicotine status: current every day tobacco/nicotine user e-cigarettes E-Cigarette Details: vaporizer device Second hand smoke exposure: No Alcohol intake: current Alcohol intake frequency: holidays/special occasions only Alcohol type: beer Substance/Drug Use: never Lives independently: Yes Marital status: Current occupational status: employed Do you think of yourself as: Straight/Heterosexual Current gender identity: Female Special rosalino needs: No Agree to transfusion: Yes Data Anesthesia 03/05/25 17:30 03/05/25 10:59 Short CBC 03/05/25 03/05/25 Range/Units 10:59 17:30 WBC 9.81 10.02 (3.29-11.43) 10^3/uL Hgb 13.70 13.20 (11.27-16.99) g/dL Hct 40.0 39.9 (36-47) % MCV 94.6 96.1 (85-98) fl Plt Count 265 219 (157-399) 10^3/cmm Neut % (Auto) 85.6 85.0 % Neut # (Auto) 8.40 H 8.52 H (1.8-7.7) 10^3/uL BMP 03/05/25 10:59 Sodium 140 Potassium 3.7 Chloride 102 Carbon Dioxide 21 L BUN 5 L Creatinine 0.5 Glucose 94 Calcium 9.5 Liver Function 03/05/25 Range/Units 10:59 Total Bilirubin 0.9 (0.15-1.2) mg/dL AST 9 (0-32) U/L ALT < 5 (0-33) U/L Alkaline Phosphatase 46 (35-105) U/L Albumin 4.6 (3.5-5.2) g/dL Urine 05/16/25 Range/Units 11:40 Urine Color Yellow (Yellow) Urine Appearance Cloudy A (CLEAR) Urine pH 8.5 A (5-7) Ur Specific [place] 1.011 (1.005-1.030) Urine Protein Negative (Negative) Urine Glucose (UA) Negative (Normal) Urine Ketones 2+ H (Negative) Urine Nitrate Negative (Negative) Urine Bilirubin Negative (Negative) Ur Leukocyte Esterase Trace A (Negative) Urine RBC 0-2 (0-2) /hpf Urine WBC 21-50 H (0-5) /hpf Coags 03/05/25 10:59 C-Reactive Protein 23.0 H
[2025-03-05] MEDS: HYDROmorphone 0.5 MG/0.5 ML INJ IVP (17:55)
[2025-03-05] MEDS: piperacillin-tazobactam 3.375 GM in sodium chloride 0.9% (plus) 50 ML IV (17:56)
[2025-03-05] MEDS: BUPivacaine 0.5% INJ 10 mL 5 ML INJECTION (19:26)
[2025-03-05] MEDS: lidocaine-epi 1% 20 mL INJ 5 ML INJECTION (19:27)
--- NOTE | 2025-03-05 20:27 | P.OP_ITS ---
Operative Report Date of procedure: March 05, 2025 Pre-op diagnosis: Early acute appendicitis Post-op diagnosis: Acute appendicitis Procedure done: Laparoscopic appendectomy Specimens removed/disposition: Appendix Surgeon: Jihan Villalta MD Anesthesia: General Estimated blood loss: 1 cc Urine output: o cc Complications: None apparent Findings: The appendix and mesoappendix were inflamed and edematous, with a small amount of adjacent focal clear inflammatory peritonitis. The appendix was not gangrenous or perforated. Brief History: The patient was found to have physical exam findings, clinical findings, and imaging findings consistent with an early acute appendicitis. Procedure: Prior to the surgery, the surgery and what it would entail were discussed with the patient in detail, including the risks, benefits, and potential alternative treatment options. Risks included, but were not limited to infection, bleeding, injury to intraabdominal organs/bowel, hernia formation, postoperative abscess, need for placement of a surgical drain, need for further surgery or interventional radiology procedures, negative appendectomy, and heart or lung complications. All question were answered and the patient wished to proceed with surgery. After informed consent was contained, the patient was brought back to the operative suite and placed in a supine position. General anesthesia and endotracheal intubation were accomplished by the anesthesiologist per anesthesia protocol. The abdomen was prepped and draped in the usual sterile fashion. A timeout verifying the correct patient, procedure to be performed, surgeon, patient medication allergies and preoperative antibiotics was performed. Local anesthetic was infiltrated within the skin and subcutaneous tissues at each incision site prior to making the incisions. A supraumbilical incision was made with a #11 scalpel blade. The umbilical stalk was grasped with a Kocker and while elevating the fascia a Veress needle was placed via the incision. An aspiration test was negative and a saline drop test was positive. The abdomen was insufflated with sterile CO2 via the Veress needle, opening pressures were low and the abdomen was insufflated to 15 mmHg. Utilizing Visiport technique a 5 mm port was placed visualizing all abdominal planes upon insertion. No intra- abdominal injury was noted upon visualization. An additional 5 mm working port was placed in the suprapubic region under direct visualization, as well as a 12 mm port in the left lower quadrant was placed under direct visualization. The abdomen was inspected laparoscopically, including the right upper quadrant, left upper quadrant, right lower quadrant, left lower quadrant and pelvis. The appendix was identified and the inflammatory adhesions were bluntly dissected with a laparoscopic Kitner. The appendix was elevated and utilizing laparoscopic LigaSure the mesoappendix was divided. Utilizing blunt dissection, a window was made in the bloodless fold of Treves. The remainder of the mesoappendix was divided with laparoscopic LigaSure until the base of the appendix was reached. Utilizing a laparoscopic linear stapler with a blue load, the appendix was divided at its base. There was no bleeding or leak noted at the staple line. A small amount of inflammatory peritonitis was suctioned from the right lower quadrant and the pelvis. Again, the staple line was inspected and there was no leak or bleeding noted. All sponge, needle, and instrument counts were noted to be correct. The fascia at that 12 mm port site in the left lower quadrant of the abdomen was closed under direct visualization with an 0-Vicryl suture utilizing a Tate-Frank suture passer. Each incision site was irrigated with warm sterile saline. The skin edges of each incision were reapproximated with 4-0 Monocryl suture. Dermabond skin glue was placed over top of each incision site. The patient tolerated the procedure well and was transferred to the postanesthesia care unit in stable and satisfactory condition.
[2025-03-06] VITALS: BP 103/53; PULSE 63; RESP 14; TEMP 36.3; O2SAT 99
[2025-03-06 02:00] VITALS: BP 94/64; PULSE 66; RESP 15; TEMP 36.4; O2SAT 98
[2025-03-06] MEDS: piperacillin-tazobactam 3.375 GM in sodium chloride 0.9% (plus) 50 ML IV (02:12)
[2025-03-06] MEDS: ondansetron 2 mg/ML SDV 2 mL 4 MG IVP (02:20)
[2025-03-06] MEDS: HYDROcodone-acetaminophen 5-325 mg Tablet 1 TAB PO ×3 (02:20→11:07)
[2025-03-06 04:00] VITALS: BP 98/55; PULSE 62; RESP 15; TEMP 36.4; O2SAT 97
[2025-03-06 05:40] LABS: Basophils % 0.1 %; Hematocrit 34.9 % (36-47); Lymphocytes # 0.4 10^3/uL (0.8-4.8); Lymphocytes % 4.9 %; Mean Corpuscular HGB Conc 32.4 g/dL (30-55); Mean Corpuscular Volume 98.9 fl (85-98); Mean Platelet Volume 9.9 fL (7.4-10.4); Monocytes # 0.3 10^3/uL (0.2-0.9); Monocytes % 2.9 %; Neutrophils # 7.99 10^3/uL (1.8-7.7); Neutrophils % 91.8 %; Nucleated Red Blood Cells % 0 %; Platelet Count 227 10^3/cmm (157-399); Red Blood Count 3.53 10^6/uL (3.85-5.65); Red Cell Distribution Width 12.4 % (12.1-15.1); White Blood Count 8.71 10^3/uL (3.29-11.43)
[2025-03-06 07:45] VITALS: BP 106/67; PULSE 71; RESP 17; TEMP 36.4; O2SAT 99
--- NOTE | 2025-03-06 11:39 | PM.DCS ---
Discharge Providers Date of Admission: 03/05/25 15:06 Date of Discharge: March 06, 2025 Attending Provider at Admission: Jihan Villalta MD Attending Provider at Discharge: Jihan Villalta MD Consults: None Primary Care Provider: Deirdre Chew NP Diagnoses at Discharge Discharge Diagnosis (1) Acute appendicitis: Status: Acute Qualifiers: Acute appendicitis type: with localized peritonitis Appendicitis gangrene presence: unspecified whether gangrene present Appendicitis perforation presence: unspecified whether perforation present Appendicitis abscess presence: without abscess Qualified Code(s): K35.30 - Acute appendicitis with localized peritonitis, without perforation or gangrene (2) Abdominal pain: Status: Acute Qualifiers: Abdominal location: right lower quadrant Qualified Code(s): R10.31 - Right lower quadrant pain (3) Generalized anxiety disorder with panic attacks: Status: Acute (4) Major depression: Status: Acute Qualifiers: Active/Remission status: currently active Major depression episode severity: moderate Major depression recurrence: recurrent Qualified Code(s): F33.1 - Major depressive disorder, recurrent, moderate (5) Chronic headaches: Status: Chronic Qualifiers: Headache type: unspecified Intractability: not intractable Qualified Code(s): R51.9 - Headache, unspecified; G89.29 - Other chronic pain Reason for Visit Reason for Visit: abdominal pain Hospital Course Hospital Course The patient is a 34-year-old female who came to the emergency department with abdominal pain, nausea, and vomiting. CT findings were suspicious for an early acute appendicitis, although ruptured ovarian cyst was also mentioned as a possibility. Transvaginal ultrasound was unremarkable. A short trial of rule out appendicitis was employed. In the interim, the patient's pain became quite severe she report 8 to 9 out ot 10 abdominal pain that migrated and localized to the right lower quadrant. Patient was taken for laparoscopic appendectomy. On postoperative day #1, the patient's pain was well-controlled, her diet was advanced to a regular diet diet which was well tolerated, she was ambulating often, her white blood cell count normalized, she remained afebrile and hemodynamically normal. She was found stable and ready for discharge to home. Physical Exam Const: COMMON NORMALS: no acute distress and patient oriented x3 HENMT: COMMON NORMALS: normocephalic and atraumatic HEAD & SCALP: normocephalic and atraumatic Resp: COMMON NORMALS: normal respiratory effort and No use of accessory muscles GI: COMMON NORMALS: Soft to palpation and non-tender PALPATION: Yes Soft to palpation OTHER: Laparoscopic incisions?clean, dry, intact. Dermabond skin glue in place. Mildly and focally tender to palpation at incisions. No erythema, no ecchymosis, and no exudate. Neuro: COMMON NORMALS: patient oriented x3 and moves all extremities Psych: COMMON NORMALS: cooperative and normal affect ATTITUDE: Yes calm Discharge Data Studies Completed and Pending Completed Studies During Hospitalization Category Date Time Status CT abdomen pelvis w con* [id number] Stat Cat Scan 03/05/25 11:22 Completed US transvaginal [id number] Stat Ultrasound 03/05/25 12:50 Completed Pending at discharge Category Date Time Status Pathology: Surgical [PTH] Routine Pth 03/05/25 19:54 Ordered Radiology Impressions Abdomen/Pelvis CT 03/05/25 11:22 IMPRESSION: 1. Appendix is very minimally abnormal. Mildly dilated appendix up to 8.5 mm with wall enhancement and minimal periappendiceal edema. Findings are highly suspicious for early acute appendicitis. 2. Small amount of free fluid in the cul-de-sac, greater on the RIGHT. May be reactive process from possible appendicitis or ruptured ovarian cyst. 3. Enlarged uterus with probable fibroids. 4. Pelvic venous congestion syndrome. Notified LELO Crain at 03/05/2025 12:15 PM. Transvaginal US 03/05/25 12:50 IMPRESSION: 1. Normal ovaries with normal vascularity. 2. Small ovarian follicles. 3. Mild uterine enlargement. 4. Pelvic venous congestion. Laboratory Results WBC 8.71 10^3/uL (3.29-11.43) 03/06/25 05:20 RBC 3.53 10^6/uL (3.85-5.65) L 03/06/25 05:20 Hgb 11.30 g/dL (11.27-16.99) 03/06/25 05:20 Hct 34.9 % (36-47) L 03/06/25 05:20 MCV 98.9 fl (85-98) H 03/06/25 05:20 MCH 32.0 pg (27-33) 03/06/25 05:20 MCHC 32.4 g/dL (30-55) 03/06/25 05:20 RDW 12.4 % (12.1-15.1) 03/06/25 05:20 Plt Count 227 10^3/cmm (157-399) 03/06/25 05:20 MPV 9.9 fL (7.4-10.4) 03/06/25 05:20 Neut % (Auto) 91.8 % 03/06/25 05:20 Lymph % (Auto) 4.9 % 03/06/25 05:20 [place] % (Auto) 2.9 % 03/06/25 05:20 Eos % (Auto) 0.0 % 03/06/25 05:20 Baso % (Auto) 0.1 % 03/06/25 05:20 Neut # (Auto) 7.99 10^3/uL (1.8-7.7) H 03/06/25 05:20 Lymph # (Auto) 0.4 10^3/uL (0.8-4.8) L 03/06/25 05:20 [place] # (Auto) 0.3 10^3/uL (0.2-0.9) 03/06/25 05:20 Eos # (Auto) 0.0 10^3/uL (0.0-0.8) 03/06/25 05:20 Baso # (Auto) 0.0 10^3/uL (0.0-0.1) 03/06/25 05:20 Nucleated RBC % (auto) 0 % 03/06/25 05:20 Nucleated RBCs # 0.0 /100WBC 03/06/25 05:20 Sodium 140 mmol/L (136-145) 03/05/25 10:59 Potassium 3.7 mmol/L (3.5-5.1) 03/05/25 10:59 Chloride 102 mmol/L (98-107) 03/05/25 10:59 Carbon Dioxide 21 mmol/L (22-29) L 03/05/25 10:59 Anion Gap 20.7 (5-19) H 03/05/25 10:59 BUN 5 mg/dL (6-20) L 03/05/25 10:59 Creatinine 0.5 mg/dL (0.5-0.9) 03/05/25 10:59 GFR Calculation 142.1 mL/min (90-130) H 03/05/25 10:59 Glucose 94 mg/dL (65-115) 03/05/25 10:59 Calculated Osmolality 287 mOsm/kg (285-295) 03/05/25 10:59 Calcium 9.5 mg/dL (8.5-10.5) 03/05/25 10:59 Total Bilirubin 0.9 mg/dL (0.15-1.2) 03/05/25 10:59 AST 9 U/L (0-32) 03/05/25 10:59 ALT < 5 U/L (0-33) 03/05/25 10:59 Alkaline Phosphatase 46 U/L (35-105) 03/05/25 10:59 C-Reactive Protein 23.0 mg/L (0.0-4.9) H 03/05/25 10:59 Total Protein 7.6 g/dL (6.6-8.7) 03/05/25 10:59 Albumin 4.6 g/dL (3.5-5.2) 03/05/25 10:59 Globulin 3.0 g/dL (1.3-4.6) 03/05/25 10:59 Lipase 11 U/L (13-60) L 03/05/25 10:59 HCG, Qual Negative (Negative) 03/05/25 10:59 Urine Color Yellow (Yellow) 03/05/25 11:40 Urine Appearance Cloudy (CLEAR) A 03/05/25 11:40 Urine pH 8.5 (5-7) A 03/05/25 11:40 Ur Specific [place] 1.011 (1.005-1.030) 03/05/25 11:40 Urine Protein Negative (Negative) 03/05/25 11:40 Urine Glucose (UA) Negative (Normal) 03/05/25 11:40 Urine Ketones 2+ (Negative) H 03/05/25 11:40 Urine Blood Negative (Negative) 03/05/25 11:40 Urine Nitrate Negative (Negative) 03/05/25 11:40 Urine Bilirubin Negative (Negative) 03/05/25 11:40 Urine Urobilinogen 0.2 mg/dL (Negative) 03/05/25 11:40 Ur Leukocyte Esterase Trace (Negative) A 03/05/25 11:40 Urine RBC 0-2 /hpf (0-2) 03/05/25 11:40 Urine WBC 21-50 /hpf (0-5) H 03/05/25 11:40 Ur Squamous Epith Cells 6-10 /hpf (0-5) 03/05/25 11:40 Amorphous Sediment Not Reportable 03/05/25 11:40 Urine Bacteria 3+ /hpf (NONE) H 03/05/25 11:40 Hyaline Casts 0.40 /lpf 03/05/25 11:40 Vitals Last Vital Signs Temp 97.6 F 03/06/25 07:45 Pulse 71 03/06/25 07:45 Resp 17 03/06/25 07:45 BP 106/67 03/06/25 07:45 Pulse Ox 99 03/06/25 07:45 O2 Del Method Room Air 03/06/25 07:45 Discharge Plan Discharge Patient Disposition: Home Condition: Stable Prescriptions: New hydrocodone-acetaminophen 5-325 mg tablet 1 tab PO Q6H PRN (Reason: pain (scale score 7-10)) 5 Days Qty: 20 0RF Discharge Orders: Discharge Order (Routine); Ordered 03/06/25 Ordered By: Jihan Villalta Referrals: Domingo Fermin MD [Physician, General Surgery] - 2 weeks Referral Note: We have notified your physician's clinic of the need for a follow-up appointment to be scheduled. If you have not heard from them within the next 2 business days, please call them directly. Problems: Acute appendicitis Deirdre Chew NP [Primary Care Provider, Family Practice] - 2 weeks Referral Note: We have notified your physician's clinic of the need for a follow-up appointment to be scheduled. If you have not heard from them within the next 2 business days, please call them directly. Discharge Diet: Regular Discharge Activity: Limit activity as instructed Patient Instructions: Hydrocodone/Acetaminophen (By mouth), Acute Wound Care (DC), Laparoscopic Appendectomy (DC), Opioid Safety, Post Anesthesia Care Activity Restrictions/Additional Instructions: The patient was instructed on what signs/symptoms would prompt immediate return to the emergency department, such as severe/worsening abdominal pain, intractable nausea/vomiting, abdominal distention, signs of infection, or fevers/chills. See below. Plan of Treatment: - Follow-up in the general surgery clinic in 2 weeks - Stay active, however no strenuous activity or heavy lifting greater than 10 pounds for at least 2 weeks - Leave Dermabond skin glue in place, it will come off on its own in 2 or 3 weeks - May place ice to incisions for comfort - May shower, no tub baths or soaking - No driving for important decision-making while taking narcotic pain medications Stand Alone Forms: Work/School Release Discharge Attestations Time Spent in Discharge Care*: greater than 30 min Quality Metrics Clinical Quality Measures [ No reported AMI, CVA or VTE this stay] Coding Level of Care Code Acute Code for Chg Fwd Diagnoses Acute appendicitis with localized peritonitis without abscess, unspecified whether gangrene present, unspecified whether perforation present K35.30 Acute appendicitis type: with localized peritonitis Appendicitis gangrene presence: unspecified whether gangrene present Appendicitis perforation presence: unspecified whether perforation present Appendicitis abscess presence: without abscess Right lower quadrant abdominal pain R10.31 Abdominal location: right lower quadrant Generalized anxiety disorder with panic attacks F41.1; F41.0 Moderate episode of recurrent major depressive disorder F33.1 Active/Remission status: currently active Major depression episode severity: moderate Major depression recurrence: recurrent Chronic nonintractable headache, unspecified headache type R51.9; G89.29 Headache type: unspecified Intractability: not intractable
[2025-03-06 11:51] VITALS: BP 101/63; PULSE 65; RESP 16; O2SAT 100
[2025-03-06] MEDS: ondansetron hcl ODT 4 mg Tab PO (13:03)
[2025-03-06 14:27] VITALS: BP 106/67; PULSE 60; RESP 18; TEMP 36.9; O2SAT 100
== END 2025-03-06 13:00 | disposition home or self-care (01) ==
LOC: ER 15:13 → ER IP 16:33 → MEDSURG 16:42
PROVIDERS: Admitting Provider Surgery; Emergency Provider Physician Assistant; Visit Provider Surgery
PROC: 0DTJ4ZZ Resection of Appendix, Percutaneous Endoscopic Approach (ICD-10-PCS; CPT 44970; principal; 2025-03-05 18:30)
DX: K35.80 Unspecified acute appendicitis (principal); F41.0 Panic disorder [episodic paroxysmal anxiety]; F41.1 Generalized anxiety disorder; F33.1 Major depressive disorder, recurrent, moderate; R51.9 Headache, unspecified; G89.29 Other chronic pain; F17.290 Nicotine dependence, other tobacco product, uncomplicated; Z91.014 Allergy to mammalian meats
CPT/HCPCS: 44970; 12345; 36415; 74177; 76830; 80053; 81001; 83690; 84703; 85025; 86140; 88304; 96361; 96365; 96372; 96375; 99285; G0378; J0330; J1171; J2250; J2270; J2405; J2543; J2704; J3490; J7030; J9999; Q0162

== ENCOUNTER → 2025-04-01 15:02 | Outpatient (BNVA) | payer SELFPAY | PROVIDERS: Visit Provider Psychiatry & Neurology Psychiatry | DX: Z79.899 Other long term (current) drug therapy (principal) | CPT/HCPCS: 80061; 83036 ==

== ENCOUNTER → 2025-04-08 14:58 | Outpatient (BNVA) | payer BC, MEDICAID, SELFPAY ==
[2025-04-06 13:35] VITALS: BP 112/76; BMI 20.2
== END ==
DX: J02.9 Acute pharyngitis, unspecified (principal)
CPT/HCPCS: 87071; 87426; 87880

== ENCOUNTER 2025-04-11 02:31 | Emergency (ER) | payer BC, MEDICAID, SELFPAY ==
[2025-04-06 13:35] VITALS: BP 112/76; BMI 20.2
[2025-04-11 02:52] VITALS: BP 107/31; PULSE 91; RESP 20; TEMP 36.8; O2SAT 98; BMI 20.7
--- NOTE | 2025-04-11 03:22 | XRR_ITS ---
PROCEDURE INFORMATION: Exam: XR Chest Exam date and time: 04/11/2025 3:43 AM Age: 34 years old Clinical indication: Shortness of breath; C/O SOB TECHNIQUE: Imaging protocol: Radiologic exam of the chest. Views: 1 view. COMPARISON: CR XR chest 1V portable [id number] 10/19/2024 7:26 AM FINDINGS: Lungs: Unremarkable. No consolidation. Pleural spaces: Unremarkable. No pleural effusion. No pneumothorax. Heart/Mediastinum: Unremarkable. No cardiomegaly. Bones/joints: Unremarkable. XR/XR chest 1V portable [id number] IMPRESSION: No visualized acute cardiopulmonary process.
[2025-04-11] MEDS: amoxicillin-clav 875-125 mg Tablet 1 TAB PO (03:43)
[2025-04-11] MEDS: dexamethasone 4 mg Tablet 10 MG PO (03:43)
[2025-04-11] MEDS: ketorolac 60 mg/2 mL INJ IM (03:43)
[2025-04-11] MEDS: HYDROmorphone 0.5 MG/0.5 ML INJ 1 MG IM (03:43)
--- NOTE | 2025-04-11 03:43 | W.ED.EAR ---
HPI - Ear Problem General: Chief complaint: Ear Stated complaint: Left ear pain. surg 3 mts ago Time Seen by Provider: 04/11/25 03:09 History of Present Illness: 34 year old female states she had surgery on her left ear three months ago. She's experiencing pain to the left ear, radiating down her left neck. This started a few hours ago. She has had a cough for several days, sore throat, has felt feverish. No vomiting. She was seen last week, prescribed symptomatic treatment. And has not been on antibiotics. She states that she does have tubes in that ear. Related Data Home Medications ?Medication ?Instructions ?Recorded ?Confirmed fluticasone propionate 50 1 spray intranasal DAILY 04/01/25 04/08/25 mcg/actuation nasal spray,suspension (Flonase Allergy Relief) Previous Rx's ?Medication ?Instructions ?Recorded hydroxyzine pamoate 25 mg capsule 50 mg (2 x 25 mg) PO TID PRN 03/08/25 (Vistaril) anxiety #60 caps escitalopram oxalate 10 mg tablet 10 mg PO DAILY #30 tabs 04/08/25 (Lexapro) promethazine-DM 6.25 mg-15 mg/5 mL 5 ml PO Q6H #118 mL 04/08/25 oral syrup propranolol 20 mg tablet 10 mg (1/2 x 20 mg) PO DAILY #30 04/08/25 tabs amoxicillin 875 mg-potassium 1 tab PO BID #20 tabs 04/11/25 clavulanate 125 mg tablet ketorolac 10 mg tablet 10 mg PO TID PRN pain #10 tabs 04/11/25 bopdsgwr-widgfcuvk-ptqulujyd 3.5 4 drp otic (ear) Q8H 7 days #10 mL 04/11/25 mg-10,000 unit/mL-1 % ear drops,susp Allergies Allergy/AdvReac Type Severity Reaction Status Date / Time Alpha-Gal Allergy Unknown Verified 04/08/25 14:47 (Jmaewurih-Nufik-1,3-Gala [facility] ED PFSH: Medical History Psychiatric care 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 Frequent headaches Abdominal pain Cervical cancer screening Encounter to establish care Chronic headaches Major depression Generalized anxiety disorder with panic attacks Surgical History History of laparoscopic appendectomy 03/05/25 Dr Villalta S/P thyroid biopsy History of ankle surgery Family History Sister Cancer cervical Lupus (systemic lupus erythematosus) Thyroid disease Mother Thyroid disease Social History Smoking and tobacco/nicotine status: current every day tobacco/nicotine user cigarettes Packs smoked per day: 0.5 Years cigarettes smoked: 15 and e-cigarettes E-Cigarette Details: e-cigarette and with nicotine Quit status (tobacco/nicotine): not considering quitting Second hand smoke exposure: No Alcohol intake: current Alcohol intake frequency: holidays/special occasions only Alcohol type: beer Substance/Drug Use: never Adopted: No Caregiver/support person: No Lives independently: Yes Household members: other Details: Lives at [facility] with approximately 30 other people Housing: Other Details: [facility] Marital status: Legally Number of children: 3 Number of grandchildren: 0 Highest education level completed: 9th Grade service: No Current occupational status: employed Current occupation: [employer] Current occupational exposures/hazards: No Pets and animals: Yes Pets & animals: cat(s) Pets & animal details: outside Leisure activites: exercise, music, games and other Leisure activities details: spend time with her children Sexually active: Yes Are you practicing safe sex: Yes Do you think of yourself as: Straight/Heterosexual Current gender identity: Female Katlyn/Gnosticist: Lutheran Special katlyn needs: No Agree to transfusion: Yes Female Reproductive History: Para: 3 Physical Exam Const: GENERAL APPEARANCE: cooperative, in distress (in pain) and anxious; not ill appearing HENMT: COMMON NORMALS: normocephalic, atraumatic and Normal external nose present HEAD & SCALP: normocephalic and atraumatic FACE & SINUS: normal facial exam and face symmetric; no sinus tenderness and no edema NOSE: Normal external nose present, Normal nares present and No nasal discharge present TYMPANIC MEMBRANE: TM abnormal TM laterality: left Details: bulging, erythematous and obstructed by cerumen (partially. tube not fully seen) Eye: COMMON NORMALS: Equal, round and reactive pupils present and EOMs intact bilaterally PUPIL: Yes Equal, round and reactive pupils present Chest: CHEST: Yes Symmetrical chest wall rise Resp: COMMON NORMALS: clear to auscultation bilaterally EFFORT & INSPECTION: Yes symmetric chest movement AUSCULTATION: clear to auscultation bilaterally Cardio: COMMON NORMALS: regular rate and regular rhythm RATE: regular rate RHYTHM: regular rhythm Course Vital Signs: Vital signs: Vital Signs Temperature 98.1 F 04/11/25 05:15 Pulse Rate 74 04/11/25 05:15 Respiratory Rate 17 04/11/25 05:15 Blood Pressure 101/59 04/11/25 05:15 Pulse Oximetry 97 04/11/25 05:15 [facility] - Ear Medical Decision Making Left TM partially obscured by cerumen in the canal. She is quite tender with manipulation of the ear. She does have redness of the membrane, with visible fluid. I cannot fully see the tube. She be placed on drops, as she has a tube, that is hopefully functioning for topical treatment of the middle ear as well as the canal. She will also be placed on Augmentin considering the severity of her symptoms. Pain control. Outpatient follow-up. Chest x-ray is negative. Lab Data Radiology Impressions Chest X-Ray 04/11/25 03:22 IMPRESSION: No visualized acute cardiopulmonary process. All radiology interpretation(s) finalized by discharge Discharge Plan Discharge Patient Disposition: Home Clinical Impression: Otitis media, URI (upper respiratory infection) Condition: Stable Prescriptions: New ketorolac 10 mg tablet 10 mg PO TID PRN (Reason: pain) Qty: 10 0RF amoxicillin-pot clavulanate 875-125 mg tablet 1 tab PO BID Qty: 20 0RF afikddtc-pwlolvqww-QF 3.5-10,000-1 mg/mL-unit/mL-% drops,suspension 4 drp otic (ear) Q8H 7 Days Qty: 10 0RF No Action hydroxyzine pamoate [Vistaril] 25 mg capsule 50 mg PO TID PRN (Reason: anxiety) Qty: 60 1RF promethazine-DM 6.25-15 mg/5 mL syrup 5 ml PO Q6H Qty: 118 0RF fluticasone propionate [Flonase Allergy Relief] 50 mcg/actuation spray,suspension 1 spray intranasal DAILY Rx Instructions: administer into each nostril escitalopram oxalate [Lexapro] 10 mg tablet 10 mg PO DAILY Qty: 30 0RF propranolol 20 mg tablet 10 mg PO DAILY Qty: 30 0RF Discharge Orders: Discharge ED (Routine); Ordered 04/11/25 Ordered By: Jack Nguyễn Referrals: Deirdre Chew NP [Primary Care Provider, Family Practice] - 1-3 days Patient Instructions: Ear Infection (ED), Opioid Safety, Pain Management Activity Restrictions/Additional Instructions: Antibiotics and eardrops as instructed. Use medication for significant pain. Call your doctor tomorrow for a follow-up appointment. Return for worsening symptoms despite treatment. Print Language: Hebrew Coding Level of Care Code ED Sawmill Supervisor for Sanjeev Hathaway
[2025-04-11] MEDS: neomycin-poly-hydrocort Otic Susp 10 mL Btl 4 DROP EAR-LEFT (04:39)
[2025-04-11 05:15] VITALS: BP 101/59; PULSE 74; RESP 17; TEMP 36.7; O2SAT 97
== END 2025-04-11 05:20 | disposition home or self-care (01) ==
PROVIDERS: Emergency Provider Emergency Medicine
DX: H66.92 Otitis media, unspecified, left ear (principal); Z98.890 Other specified postprocedural states; J06.9 Acute upper respiratory infection, unspecified; F17.210 Nicotine dependence, cigarettes, uncomplicated
CPT/HCPCS: 71045; 96372; 99284; J1171; J1885; J8540; J9999

== ENCOUNTER → 2025-07-01 14:42 | Outpatient (BNVA) | payer BC, MEDICAID, SELFPAY ==
[2025-04-06 13:35] VITALS: BP 112/76; BMI 20.2
== END ==
DX: R30.0 Dysuria (principal)
CPT/HCPCS: 81000; 81025; 87086; 87491; 87591

== ENCOUNTER 2025-08-29 19:37 | Emergency (ER) | payer BC, MEDICAID, SELFPAY ==
--- OUTSIDE RECORDS SUMMARY | 2016-12-03 06:04 | XMS_ITS | Continuity of Care Document ---
Author Organization [employer] Address [address] [address] Phone Care Team Providers Care Wrap Turner Name Role Phone Mary Lara N.P. Unavaila ble Allergies, Adverse Reactions, Alerts Substance Reaction Status Criticality No Known Allergies Active No Inform ation Procedures Procedure Date DUPLICATE CHARGE URINALYSIS, AUTO, W/O SCOPE Antepartum Office Visit NEW 3RD TRIMESTER URINALYSIS, AUTO, W/O SCOPE Antepartum Office Visit NEW 2ND TRIMESTER OB US >/= 14 WKS, SNGL FETUS URINALYSIS, AUTO, W/O SCOPE URINE TEST Antepartum Office Visit Advance Directives Directive Yes / No Effective Date File Name No Information Encounters Encounter Description Practice Location Reason(s) For Visit Diagnoses Date Provider Providers Copied on Encounter [facility], [address] [place] [address], [id number], [place] tel:[phone] [facility] No Information 7 Marco Hernandez. [address] [place], [address], [place]. tel:[phone] [facility], [address] [place] [address], [place], [place], [id number], tel:[phone] [facility] No Information 6 Autumn Torrez. [address] [place], [address]. tel:[phone] [facility], [address] [place] [address], [id number], [place] tel:[phone] [facility] routine (chief complaint) Encounter for suprvsn of normal , third [id number] weeks gestation of 6 Lobo Tobias. [address], [place], [id number], [place]. tel:[phone] [facility], [address] [place] [address], [id number], [place] tel:[phone] [facility] No Information 6 Christiano Leal. [address] [place], [place], [id number], [place]. tel:[phone] [facility], [address] [place] [address], [id number], [place] tel:[phone] [facility] routine (chief complaint) Substance abuse affecting in third trimester, antepartumOther psychoactive substance abuse, [id number] weeks gestation of 6 Christiano Leal. [address] [place], [place], [id number], [place]. tel:[phone] [facility], [address] [place] [address], [id number], [place] tel:[phone] [facility] No Information 6 Kendy Grimaldo. [address] [place], [place], [id number], [place]. tel:[phone] [facility], [address] [place] [address], [id number], [place] tel:[phone] [facility] Maternal care for chromosomal abnormality in fetus, unsp27 weeks gestation of Jun- 6 Mony Morales. [address] [place], [address], [place]. tel:[phone] [facility], [address] [place] [address], [place], [place], [id number], [place] tel:[phone] [facility] Encntr for suprvsn of normal first preg, second trimester Sep- 6 Kendy Grimaldo. [address], [place], [id number], [place]. tel:[phone] Family History Family Member Type Diagnosis Age At Onset No Information Payers Payer name Insurance type Covered green party ID Authoriza tion(s) IEHP Direct CI [id number] Social History Type Description Quantity Date Captured Comments Alcohol Use Details Unknown Caffeine Use Details Unknown Tobacco Use Status No Information Smoking Status No Information Sex Female Chief Complaint And Reason For Visit No Information Reason For Referral Reason For Referral No Information Plan Of Treatment Date Type Action Status Patient Education Weeks 22 to 26 of Your : Care completed Future Order: Lab Order CBC w/di ff ([id number]), Sent on: Sent Future Order: Lab Order Gestatio nal Diabetes Eval ([id number]), Sent on: Sent Future Order: Lab Order PSC HOLD ([id number]), Sent on: Sent History Of Present Illness Encounter Date Complaint History Of Prese nt Illness routine routine Functional Status Date Functional Assessmen t No Information Instructions Date Instruction Additional Infor mation No Information Assessments Type Assessment Date No Information Patient Care Teams Name Effective Dates (start - stop) Status Members No Information
[2025-04-06 13:35] VITALS: BP 112/76; BMI 20.2
[2025-08-29 19:34] VITALS: BP 110/77; PULSE 87; RESP 17; TEMP 36.6; O2SAT 96; BMI 21.2
--- OUTSIDE RECORDS SUMMARY | 2025-08-29 19:44 | XMS_ITS | Encounter Summary ---
[facility] Address [address] [place] [address] Care Team Providers Care Airport Screener Name Role Phone Unavailable Primary Care Provider Unavailabl e Encounter Details Date Type Department Care Team (Late st Contact Info) Description 08/24/2025 External Device Data [place] ABSTRACTION Provider, Abstract NO ADDRESS ON FILE Social History Tobacco Use Types Packs/Day Years Used Date Smoking Tobacco: Every Day Cigarettes Alcohol Use Standard Drinks/Week Comments Yes 0 (1 standard drink = 0.6 oz pur e alcohol) Feeling Safe Answer Date Recorded Are you in a relationship wi th someone who hurts you emotionally and/or physically? No 12/21/2024 Food Insecurity Answer Date Recorded Patient needs follow up regardin 02/11/2025 Transportation Needs Answer Date Record ed Patient needs follow up regardin 02/11/2025 Housing Stability Answer Date Recorded Social/Environmental Concerns No concerns Utility Needs Answer Date Recorded Patient needs follow up regardin 02/11/2025 Comments No Sex and Gender Information Value Date Recorded Sex Assigned at Not on file Legal Sex Female 1:14 PM CDT Gender Identity Not on file Sexual Orientation Not on file documented as of this encounter Plan of Treatment Not on file documented as of this encounter Visit Diagnoses Not on filedocumented in this encounter
--- OUTSIDE RECORDS SUMMARY | 2025-08-29 19:44 | XMS_ITS | Clinical Summary ---
Author Organization [facility] Address [address] [address] Phone Care Team Providers Care Measurement Advisor Name Role Phone Unavailable Primary Care Provider Unavailabl e Allergies Active Allergy Reactions Criticality Noted Date Comments Alpha-Gal (Dqqodqkmu-Eyvrw-1,3-Galactose) Unknown 10/24/2023 Medications acetaminophen (TYLENOL) 500 mg tablet Take 500 mg by mouth every 6 hours as needed. Active aspirin (JEAN PIERRE CHEWABLE) 81 mg Tablet, Chewable Take 1 Tablet (81 mg) by mouth 2 times daily. 60 Tablet 1 07/10/2022 11:29 AM CDT 2 Active ondansetron (ZOFRAN ODT) 4 mg Tablet, Rapid Dissolve Take 1 Tablet (4 mg) by mouth every 4 hours as needed for Nausea/Emesis. Dissolve tablet on top of tongue, then swallow with saliva. 30 Tablet 1 07/10/2022 11:29 AM CDT 2 Active ibuprofen (MOTRIN) 400 mg tablet Take 1 Tablet (400 mg) by mouth every 8 hours as needed for Other (See Comment) (for pain secondary to inflammation). 4 Active empty container (Nasal [place] Bottle) Bottle by [facility].(Non-Drug ; Combo Route) route daily. Active fluticasone propionate (FLONASE) 50 mcg/spray [place], Suspension nasal inhaler Administer 2 Sprays in each nostril daily. Active HYDROcodone-aceta minophen (NORCO) 5-325 mg tabletIndications :Unilateral facial paresis,Otalgia, left ear,Conductive hearing loss of left ear with unrestricted hearing of right ear Take 1 Tablet by mouth every 4 hours as needed for Pain. 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 Closed trimalleolar fracture of right ankle 06/21 Scalp abscess 06/29/2022 Resolved Problems Problem Noted Date Diagnosed Date Resolved Date Otalgia, left ear 11/16/2024 04/30/2025 Acute mastoiditis of left si de with facial paralysis 10/24/2023 12/24/2024 Encounters Date Type Department Care Team Description 08/24/2025 External Device Data [facility] ABSTRACTION Provider, Abstract 08/18/2025 External Device Data [facility] ABSTRACTION Provider, Abstract 08/17/2025 External Device Data [facility] ABSTRACTION Provider, Abstract 08/03/2025 External Device Data [facility] ABSTRACTION Provider, Abstract 06/29/2025 External Device Data [facility] ABSTRACTION Provider, Abstract 06/08/2025 External Device Data [facility] ABSTRACTION Provider, Abstract from Last 3 Months Family History Medical History Relation Name Comments High Cholesterol Mother Relation Name Status Comments Father Alive Mother Alive Social History Tobacco Use Types Packs/Day Years Used Date Smoking Tobacco: Every Day Cigarettes Tobacco Cessation:Ready to Q uit: Not Asked; Counseling Given: Not Answered Alcohol Use Standard Drinks/Week Comments Yes 0 [...] on file Sexual Orientation Not on file Last Filed Vital Signs Vital Sign Reading Time Taken Comments Blood Pressure 100/64 04/30/2025 12:21 PM CDT Pulse 85 01/22/2025 2:35 PM CDT Temperature 36.6 C (97.8 F) 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 Respiratory Rate 20 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 Oxygen Saturation 99% 01/22/2025 2:35 PM CDT Inhaled Oxygen Concentration - - Weight 54 kg (119 lb) 04/30/2025 12:21 PM CDT Height 157.5 cm (5' 2 ) 04/30/2025 12:21 PM CDT Body Mass Index 21.77 04/30/2025 12:21 PM CDT Plan of Treatment Health Maintenance Due Date Last Done Comments DTAP/TDAP/TD VACCINES (1 - Tdap) 2010 HEPATITIS B VACCINES (1 of 3 - 19+ 3-dose series) 02/2011 HPV/Cotest (21-29) 2012 HPV VACCINES (1 - 3-dose SCDM series) 2018 CERVICAL CANCER SCREENING 2021 HPV/Cotest (30-65) 2021 PAP SMEAR 2021 INFLUENZA VACCINE (#1) 2025 Medical Devices Implanted Type Area Special Education Professor Device Identifier Shelf Expiration Date Model / Serial / Lot Tube Vent Maria Del Carmen Tympanostomy 1.27mm [id number] - [id number] Implanted:Qty: 1 on 10/25/2023 by Martin Vila DO at [facility] Ear Left: Ear [employer] 08/10/2026 [id number] / / [id number] Hemostatic Surgifoam Sz12-7 1971 - [id number] Implanted:Qty: 1 on 10/25/2023 by Martin Vila DO at [facility] Hemostatic Left: Ear [employer] [id number] 07/17/20271971 / / [id number] Plate Dis Fib Rt 4h Loc [id number] - [id number] Implanted:Qty: 1 on 07/10/2022 by Guillermo Mart MD at [facility] Plate Right: Ankle [employer] 07/10/2023 AR-9943BR -04 / / [id number] Screw Ft Lp 3.0x20mm Ar-8933-20 - [id number] Implanted:Qty: 1 on 07/10/2022 by Guillermo Mart MD at [facility] Screw Right: Ankle [employer] 07/10/2023 AR-8933-2 0 / / [id number] Screw Lp Ti 3.5x16mm Ar-8935-16 - [id number] Implanted:Qty: 1 on 07/10/2022 by Guillermo Mart MD at [facility] Screw Right: Ankle [employer] 07/10/2023 AR-8935-1 6 / / [id number] Screw Brenda Kreulock 3.0x12mm Ti [id number] - [id number] Implanted:Qty: 1 on 07/10/2022 by Guillermo Mart MD at [facility] Screw Right: Ankle [employer] 07/10/2023 AR-8933VC L-12 / / [id number] Screw Brenda Kreulock 3.0x16mm Ti [id number] - [id number] Implanted:Qty: 2 on 07/10/2022 by Guillermo Mart MD at [facility] Screw Right: Ankle [employer] 07/10/2023 AR-8933VC L-16 / / [id number] Screw Brenda Kreulock 3.0x18mm Ti [id number] - [id number] Implanted:Qty: 1 on 07/10/2022 by Guillermo Mart MD at [facility] Screw Right: Ankle [employer] 07/10/2023 AR-8933VC L-18 / / [id number] Screw Kreulock Ti 3.5x14mm [id number] - [id number] Implanted:Qty: 1 on 07/10/2022 by Guillermo Mart MD at [facility] Screw Right: Ankle [employer] 07/10/2023 AR-8935CL -14 / / [id number] 4.0 X 50mm Cannulated Screw Implanted:Qty: 2 on 07/10/2022 by Guillermo Mart MD at [facility] Right: Ankle 07/10/2023 AR[employer]-A R-8740-50 PTS / / [id number] Insurance [facility] MEDICAID RX [id number] Medicaid Advance Directives For more information, please contact: [phone] * Full Code (Latest Code Status on File) Date Activated Date Inactivated Comments 12/24/2024 10:36 AM 12/24/2024 3:16 PM * Full Code Date Activated Date Inactivated Comments 12/24/2024 7:39 AM 12/24/2024 10:36 AM * Full Code Date Activated Date Inactivated Comments 10/25/2023 4:35 PM 10/27/2023 2:41 PM * Full Code Date Activated Date Inactivated Comments 10/25/2023 2:41 PM 10/25/2023 4:35 PM * Full Code Date Activated Date Inactivated Comments 10/25/2023 11:53 AM 10/25/2023 2:41 PM
--- NOTE | 2025-08-29 19:54 | CTR_ITS ---
PROCEDURE INFORMATION: Exam: CT Head Without Contrast Exam date and time: 08/29/2025 8:04 PM Age: 34 years old Clinical indication: Injury or trauma; Blunt trauma (contusions or hematomas); EMS arrival for fall at home. C/O left sided numbness. History of bells palsy. ETOH on board. ; Additional info: HX of mass removed? Chronic L sided numbness TECHNIQUE: Imaging protocol: Computed tomography of the head without contrast. Radiation optimization: All CT scans at this facility use at least one of these dose optimization techniques: automated exposure control; mA and/or kV adjustment per patient size (includes targeted exams where dose is matched to clinical indication); or iterative reconstruction. COMPARISON: No relevant prior studies available. RADIATION DOSE METRICS: Total DLP (mGy-cm): 1193.48 FINDINGS: Brain: Normal. No hemorrhage. Unremarkable white matter. No mass effect. Cerebral ventricles: No ventriculomegaly. Paranasal sinuses: Visualized sinuses are unremarkable. No fluid levels. Mastoid air cells: Visualized mastoid air cells are well aerated. Bones: Left mastoidectomy. Soft tissues: Unremarkable. CT/CT head wo con* [id number] IMPRESSION: No acute intracranial abnormality.
--- NOTE | 2025-08-29 19:55 | W.ED.GENADLT ---
HPI - General Adult General: Chief complaint: Weakness Stated complaint: fall, etoh, weakness Source: patient Mode of arrival: EMS Limitations: no limitations History of Present Illness: Patient is a 34-year-old female presents to ED today via EMS for medical evaluation. Patient tells me she has been drinking this evening. She states she went to the bathroom to urinate when her left knee gave out . Patient states this is not abnormal for her left knee to do this. She states she chronically has problems with my whole left side . She states approximately 2 years ago she was seen at [facility] with an episode of Merino's palsy and subsequently was transferred to [facility] where she had surgery to remove multiple masses on my brainstem . When I asked her if she was ever told what the mass was or if it was biopsied she tells me she was told the mass was caused by stress/anxiety/or my divorce . She states ever since then she has problems with her left side where it will go numb and give out which was the case this evening. Her NIH upon arrival is 1 for the sensory complaint to the left side but otherwise she has a normal neurologic examination. We will attempt to get hospital records. She does later tell me that the surgery to her brain was actually surgery behind her ear where the masses were so large they were pushing on her brainstem. Onset (ago): hour(s) Location: face, left, upper extremity and lower extremity Severity: mild Relieving factors: none Exacerbating factors: none Associated symptoms: Deny chest pain, confusion, dyspnea, headache(s), malaise, nausea, rash, palpitations, syncope or vomiting Treatments prior to arrival: none Related Data Home Medications ?Medication ?Instructions ?Recorded ?Confirmed fluticasone propionate 50 1 spray intranasal DAILY 04/01/25 07/01/25 mcg/actuation nasal spray,suspension (Flonase Allergy Relief) Previous Rx's ?Medication ?Instructions ?Recorded escitalopram oxalate 10 mg tablet 10 mg PO DAILY #30 tabs 06/29/25 (Lexapro) hydroxyzine pamoate 25 mg capsule 50 mg (2 x 25 mg) PO TID PRN 07/01/25 (Vistaril) anxiety #60 caps phenazopyridine 100 mg tablet 100 mg PO TID PRN pain 6 doses #6 07/01/25 tabs drospirenone 3 mg-ethinyl 1 tab PO DAILY #28 tabs 07/02/25 estradiol 0.02 mg tablet (GUERITA (28)) sulfamethoxazole 800 1 tab PO Q12H 5 days #10 tabs 07/02/25 mg-trimethoprim 160 mg tablet (Bactrim DS) propranolol 20 mg tablet 10 mg (1/2 x 20 mg) PO DAILY #30 08/11/25 tabs Allergies Allergy/AdvReac Type Severity Reaction Status Date / Time Alpha-Gal Allergy Unknown Verified 07/01/25 14:24 (Daogglqbv-Okstu-3,3-Gala Review of Systems Const: Denies: fever(s), chills, body aches, fatigue or malaise Eyes: Denies: change in vision, blurry vision, photophobia, floaters or seeing flashes Card: Denies: chest pain, palpitations, irregular heart rhythm, lightheadedness, syncope or dyspnea on exertion Resp: Denies: dyspnea, productive cough or pain on inspiration GI: Denies: abdominal pain, nausea, vomiting, heartburn or diarrhea : Denies: dysuria Musc: Denies: neck pain, back pain, extremity pain, extremity swelling, joint pain or joint swelling Skin/Breast: Denies: rash Neuro: Reports: sensory changes (reportedly chronic) and frequent falls (reportedly chronic); Denies: headache(s), weakness in extremities, lack of coordination, difficulty walking, dizziness, vertigo, confusion, behavioral changes, Slurred speech present, difficulty communicating thoughts or seizure-like activity Psych: Reports: anxiety PFSH ED PFSH: Medical History Dysuria Psychiatric care 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 Frequent headaches Abdominal pain Cervical cancer screening Encounter to establish care Chronic headaches Moderate episode of recurrent major depressive disorder Generalized anxiety disorder with panic attacks Surgical History History of ear surgery left x2 History of laparoscopic appendectomy 03/05/25 Dr Villalta S/P thyroid biopsy History of ankle surgery Family History Sister Cancer cervical Lupus (systemic lupus erythematosus) Thyroid disease Mother Thyroid disease Social History Smoking and tobacco/nicotine status: current every day tobacco/nicotine user cigarettes Packs smoked per day: 0.5 Years cigarettes smoked: 15 and e-cigarettes E-Cigarette Details: e-cigarette and with nicotine Quit status (tobacco/nicotine): not considering quitting Second hand smoke exposure: No Alcohol intake: current Alcohol intake frequency: holidays/special occasions only Alcohol type: beer Substance/Drug Use: never Adopted: No Caregiver/support person: No Lives independently: Yes Household members: other Details: Lives at [facility] with approximately 30 other people Housing: Other Details: [facility] Marital status: Legally Number of children: 3 Number of grandchildren: 0 Highest education level completed: 9th Grade service: No Current occupational status: employed Current occupation: [employer] Current occupational exposures/hazards: No Pets and animals: Yes Pets & animals: cat(s) Pets & animal details: outside Leisure activites: exercise, music, games and other Leisure activities details: spend time with her children Sexually active: Yes Are you practicing safe sex: Yes Do you think of yourself as: Straight/Heterosexual Current gender identity: Female Katlyn/Episcopalian: [employer] Special katlyn needs: No Agree to transfusion: Yes Female Reproductive History: Para: 3 Physical Exam Const: COMMON NORMALS: no acute distress, patient oriented x3, no limitations, alert and well nourished GENERAL APPEARANCE: cooperative and odor of alcohol detected ORIENTATION/CONSCIOUSNESS: Yes awake, Yes oriented to person, Yes oriented to place and Yes oriented to time HENMT: COMMON NORMALS: normocephalic and atraumatic HEAD & SCALP: normal to inspection, normocephalic and atraumatic FACE & SINUS: normal facial exam and face symmetric Eye: COMMON NORMALS: Equal, round and reactive pupils present and EOMs intact bilaterally GENERAL EYE: appearance normal, both eyes and all related structures and normal light reflex PUPIL: Yes Equal, round and reactive pupils present DIRECT OPHTHALMOSCOPY: Yes normal light reflex Neck/C-Spine: COMMON NORMALS: full ROM, no lymphadenopathy, supple and no meningeal signs Chest: COMMONS NORMALS: normal inspection of the chest Resp: COMMON NORMALS: normal respiratory effort and clear to auscultation bilaterally AUSCULTATION: clear to auscultation bilaterally Cardio: COMMON NORMALS: regular rate and regular rhythm RATE: regular rate RHYTHM: regular rhythm GI: COMMON NORMALS: Normal to inspection, nondistended, normoactive bowel sounds present, Soft to palpation, non-tender, No hepatosplenomegaly present and no masses PALPATION: Yes Soft to palpation and Yes No hepatosplenomegaly present : COMMON NORMALS: Yes no CVA tenderness BLADDER/KIDNEY EXAM: Yes no CVA tenderness Back/Pelvis: COMMON NORMALS: no CVA tenderness and thoracic and lumbar spine normal to inspection Extremity: COMMON NORMALS: normal to inspection GENERAL: Yes normal exam except as noted Neuro: FRANTZ COMA SCALE: document GCS findings Frantz coma scale eye opening: Spontaneous Frantz coma scale verbal response: Orientated Frantz coma scale motor response: Obey commands Webster coma scale total score: 15 COMMON NORMALS: patient oriented x3, CN's II-XII intact bilaterally, moves all extremities and no focal motor deficits SENSORIUM/ORIENTATION: Yes alert, Yes oriented to person, Yes oriented to place and Yes oriented to time MENINGEAL SIGNS: Yes no meningeal signs SPEECH: speech normal MOTOR EXAM: 5/5 motor strength present throughout OTHER: reporting decreased sensation throughout entire L side of face, entire L arm, and entire L leg; no motor weakness; she states these findings are chronic Skin: COMMON NORMALS: no rashes or lesions noted GENERAL SKIN EXAM: no rashes or lesions noted Course Vital Signs: Vital signs: Vital Signs Temperature 97.9 F 08/29/25 19:34 Pulse Rate 87 08/29/25 19:34 Respiratory Rate 17 08/29/25 19:34 Blood Pressure 110/77 08/29/25 19:34 Pulse Oximetry 96 08/29/25 19:34 Oxygen Delivery Me thod Room Air 08/29/25 19:34 [facility] - General Adult Medical Decision Making Patient is a 34-year-old female here with an episode of left-sided sensory deficit. She states she has had these symptoms several times before over the past two years ever since some surgery to the left side of her face/neck. I am confused on her history as she states she was seen at [facility] at that time and was told she had Merino's Palsy but then also was told I was two seconds away from having a stroke and that I could have and then was subsequently transferred to [facility] where she had surgery by ENT to remove some mass back behind her ear that was pushing on my brainstem . Ultimeately today her NIH is 1 for the sensory deficit and this is chronic by history. Remainder of her workup here was unremarkable. Mildly low potassium and she was given oral replacement for this. Alcohol was 237. Patient has a chronic history of alcohol abuse. CT imaging of her head was unremarkable. We did attempt to obtain records from [facility] but 2 hours later we still have not heard anything back from them. Patient will be allowed discharge with recommendations to follow-up with her primary care provider. Medical Records I reviewed the patient's medical records. Lab Data I reviewed the patient's lab results. 08/29/25 19:10 08/29/25 19:[address] 08/29/25 19:54 IMPRESSION: No acute intracranial abnormality. Laboratory Results WBC 4.54 10^3/uL (3.29-11.43) 08/29/25 19:10 RBC 4.78 10^6/uL (3.85-5.65) 08/29/25 19:10 Hgb 15.10 g/dL (11.27-16.99) 08/29/25 19:10 Hct 44.6 % (36-47) 08/29/25 19:10 MCV 93.3 fl (85-98) 08/29/25 19:10 MCH 31.6 pg (27-33) 08/29/25 19:10 MCHC 33.9 g/dL (30-55) 08/29/25 19:10 RDW 12.0 % (12.1-15.1) L 08/29/25 19:10 Plt Count 335 10^3/cmm (157-399) 08/29/25 19:10 MPV 9.9 fL (7.4-10.4) 08/29/25 19:10 Neut % (Auto) 52.5 % 08/29/25 19:10 Lymph % (Auto) 41.6 % 08/29/25 19:10 [place] % (Auto) 4.6 % 08/29/25 19:10 Eos % (Auto) 0.7 % 08/29/25 19:10 Baso % (Auto) 0.4 % 08/29/25 19:10 Neut # (Auto) 2.38 10^3/uL (1.8-7.7) 08/29/25 19:10 Lymph # (Auto) 1.9 10^3/uL (0.8-4.8) 08/29/25 19:10 [place] # (Auto) 0.2 10^3/uL (0.2-0.9) 08/29/25 19:10 Eos # (Auto) 0.0 10^3/uL (0.0-0.8) 08/29/25 19:10 Baso # (Auto) 0.0 10^3/uL (0.0-0.1) 08/29/25 19:10 Nucleated RBC % (auto) 0 % 08/29/25 19:10 Nucleated RBCs # 0.0 /100WBC 08/29/25 19:10 Sodium 144 mmol/L (136-145) 08/29/25 19:10 Potassium 3.2 mmol/L (3.5-5.1) L 08/29/25 19:10 Chloride 103 mmol/L (98-107) 08/29/25 19:10 Carbon Dioxide 25 mmol/L (22-29) 08/29/25 19:10 Anion Gap 19.2 (5-19) H 08/29/25 19:10 BUN 7 mg/dL (6-20) 08/29/25 19:10 Creatinine 0.9 mg/dL (0.5-0.9) 08/29/25 19:10 GFR Calculation 72.1 mL/min (90-130) L 08/29/25 19:10 Glucose 94 mg/dL (65-115) 08/29/25 19:10 Calculated Osmolality 296 mOsm/kg (285-295) H 08/29/25 19:10 Calcium 9.2 mg/dL (8.5-10.5) 08/29/25 19:10 Total Bilirubin 0.2 mg/dL (0.15-1.2) 08/29/25 19:10 AST 18 U/L (0-32) 08/29/25 19:10 ALT 10 U/L (0-33) 08/29/25 19:10 Alkaline Phosphatase 47 U/L (35-105) 08/29/25 19:10 Total Protein 8.8 g/dL (6.6-8.7) H 08/29/25 19:10 Albumin 5.1 g/dL (3.5-5.2) 08/29/25 19:10 Globulin 3.7 g/dL (1.3-4.6) 08/29/25 19:10 HCG, Qual Negative (Negative) 08/29/25 19:10 Urine Color Yellow (Yellow) 08/29/25 20:05 Urine Appearance Clear (CLEAR) 08/29/25 20:05 Urine pH 6.0 (5-7) 08/29/25 20:05 Ur Specific [place] 1.006 (1.005-1.030) 08/29/25 20:05 Urine Protein Negative (Negative) 08/29/25 20:05 Urine Glucose (UA) Negative (Normal) 08/29/25 20:05 Urine Ketones Negative (Negative) 08/29/25 20:05 Urine Blood Negative (Negative) 08/29/25 20:05 Urine Nitrate Negative (Negative) 08/29/25 20:05 Urine Bilirubin Negative (Negative) 08/29/25 20:05 Urine Urobilinogen 0.2 mg/dL (Negative) 08/29/25 20:05 Ur Leukocyte Esterase Negative (Negative) 08/29/25 20:05 Urine RBC 0-2 /hpf (0-2) 08/29/25 20:05 Urine WBC 0-5 /hpf (0-5) 08/29/25 20:05 Ur Squamous Epith Cells 0-5 /hpf (0-5) 08/29/25 20:05 Amorphous Sediment Not Reportable 08/29/25 20:05 Urine Bacteria None seen /hpf (NONE) 08/29/25 20:05 Hyaline Casts 0-4 /lpf H 08/29/25 20:05 Urine Opiates Screen Negative ng/mL (Negative) 08/29/25 20:05 Ur Barbiturates Screen Negative ng/mL (Negative) 08/29/25 20:05 Ur Phencyclidine Scrn Negative ng/mL (Negative) 08/29/25 20:05 Ur Amphetamines Screen Negative ng/mL (Negative) 08/29/25 20:05 U Benzodiazepines Scrn Negative ng/mL (Negative) 08/29/25 20:05 Urine Cocaine Screen Negative ng/mL (Negative) 08/29/25 20:05 U Marijuana (THC) Screen Negative ng/mL (Negative) 08/29/25 20:05 Ethyl Alcohol 237 mg/dL (0-10) H 08/29/25 19:10 All radiology interpretation(s) finalized by discharge Discharge Plan Discharge Patient Disposition: Home Clinical Impression: Left-sided sensory deficit present Condition: Stable Prescriptions: No Action fluticasone propionate [Flonase Allergy Relief] 50 mcg/actuation spray,suspension 1 spray intranasal DAILY Rx Instructions: administer into each nostril phenazopyridine 100 mg tablet 100 mg PO TID PRN (Reason: pain) Qty: 6 0RF hydroxyzine pamoate [Vistaril] 25 mg capsule 50 mg PO TID PRN (Reason: anxiety) Qty: 60 1RF escitalopram oxalate [Lexapro] 10 mg tablet 10 mg PO DAILY Qty: 30 3RF sulfamethoxazole-trimethoprim [Bactrim DS] 800-160 mg tablet 1 tab PO Q12H 5 Days Qty: 10 0RF drospirenone-ethinyl estradiol [GUERITA (28)] 3-0.02 mg tablet 1 tab PO DAILY Qty: 28 5RF propranolol 20 mg tablet 10 mg PO DAILY Qty: 30 3RF Discharge Orders: Discharge ED (Routine); Ordered 08/29/25 Ordered By: Maggie Davis Referrals: Deirdre Chew NP [Primary Care Provider, Family Practice] Patient Instructions: Patient Portal & Artur Instructions Print Language: Greek Coding Level of Care Code ED Conversion Worker for Sanjeev Hathaway NIH stroke score NIHSS Level Of Consciousness - 1a: 0 Level Of Consciousness Questions - 1b: Both Correct Level Of Consciousness Commands - 1c: Both Correct Best Gaze - 2: Normal Visual [place] - 3: No Visual Loss Facial Palsy - 4: Normal Motor Arm Right - 5: No Drift Motor Arm Left - 5: No Drift Motor Leg Right - 6: No Drift Motor Leg Left - 6: No Drift Limb Ataxia - 7: Absent Sensory - 8: Mild To Moderate Loss (pt states this is chronic) Best Language - 9: No Aphasia Dysarthia - 10: Normal Extinction And Inattention - 11: 0 Score Total Score: 1
[2025-08-29 19:59] LABS: Hematocrit 44.6 % (36-47); Hemoglobin 15.10 g/dL (11.27-16.99); Mean Corpuscular HGB Conc 33.9 g/dL (30-55); Mean Corpuscular Hemoglobin 31.6 pg (27-33); Mean Corpuscular Volume 93.3 fl (85-98); Nucleated Red Blood Cells % 0 %; Platelet Count 335 10^3/cmm (157-399); Red Blood Count 4.78 10^6/uL (3.85-5.65); White Blood Count 4.54 10^3/uL (3.29-11.43)
[2025-08-29 20:05] LABS: HCG, Serum Qual Negative (Negative)
[2025-08-29 20:10] LABS: Glucose Urine UA Negative (Normal); Nitrate Urine Negative (Negative); Specific Gravity, Urine 1.006 (1.005-1.030)
[2025-08-29 20:13] LABS: Alanine Aminotransferase 10 U/L (0-33); Albumin Level 5.1 g/dL (3.5-5.2); Alcohol Level 237 mg/dL (0-10); Alkaline Phosphatase 47 U/L (35-105); Anion Gap 19.2 (5-19); Aspartate Amino Transferase 18 U/L (0-32); Blood Urea Nitrogen 7 mg/dL (6-20); Calcium 9.2 mg/dL (8.5-10.5); Carbon Dioxide 25 mmol/L (22-29); Chloride 103 mmol/L (98-107); Creatinine Clr Calc Pharmacy 74.6862; Globulin 3.7 g/dL (1.3-4.6); Glucose 94 mg/dL (65-115); Osmolality Calculated 296 mOsm/kg (285-295); Potassium 3.2 mmol/L (3.5-5.1); Sodium 144 mmol/L (136-145); Total Protein 8.8 g/dL (6.6-8.7)
[2025-08-29 20:15] LABS: Add Urine Microscopic? YES
[2025-08-29 20:19] LABS: PCP Screen Urine Negative (Negative)
[2025-08-29] MEDS: potassium chloride oral liq 20 mEq/15 mL UDC 40 MEQ PO (20:24)
[2025-08-29 21:27] VITALS: BP 102/65; PULSE 85; RESP 17; O2SAT 96
== END 2025-08-29 21:28 | disposition home or self-care (01) ==
PROVIDERS: Emergency Provider Physician Assistant
DX: R41.842 Visuospatial deficit (principal); F17.210 Nicotine dependence, cigarettes, uncomplicated; F17.290 Nicotine dependence, other tobacco product, uncomplicated; F10.129 Alcohol abuse with intoxication, unspecified; Y90.7 Blood alcohol level of 200-239 mg/100 ml
CPT/HCPCS: 70450; 80053; 80306; 80307; 81001; 84703; 85025; 96360; 99284; J7030; J9999

== ENCOUNTER → 2025-10-06 15:05 | Outpatient (BNVA) | payer BC, MEDICAID, SELFPAY ==
[2025-04-06 13:35] VITALS: BP 112/76; BMI 20.2
== END ==
DX: R00.2 Palpitations (principal)
CPT/HCPCS: 80053; 82607; 84443